=== PATIENT | male | born 1990 | race Two or more races ===

== ENCOUNTER 2020-09-13 01:40 | Emergency (ER) | payer MEDICAID, SELFPAY ==
[2020-09-13 01:44] VITALS: BP 155/90; PULSE 67; RESP 20; TEMP 36.8; O2SAT 98
--- NOTE | 2020-09-13 03:04 | ED_ITS ---
HPI - URI/Sore Throat General Chief Complaint: Upper Respiratory Symptoms Stated Complaint: SOB Time Seen by Provider: 09/13/20 03:04 History of Present Illness HPI Narrative: This is a 30-year-old male who presents with cough for 1 week denies fevers, chills, nausea, vomiting, recent travel, COVID-19 exposure. Patient states that he is also concerned about waking up in the middle of the night gasping for breath and when asked about feeling tired throughout the day he confirms that this is the case although states that his is not told him that he snores. Related Data Allergies Allergy/AdvReac Type Severity Reaction Status Date / Time shrimp [SHRIMP] Allergy Intermediate HIVES, Verified 09/13/20 03:11 SWELLING, HAYLEE Review of Systems Review of Systems: Pertinent positives and negatives as stated in the HPI and 10 point review of systems otherwise negative. [facility] Past Medical History Source: nursing notes reviewed Social History Social History Advance Directives: No Physical Exam Vital Signs: Vital Signs: Vital Signs Temp Pulse Resp BP Pulse Ox 09/13/20 03:10 98.4 F 78 16 146/91 H 99 09/13/20 01:44 98.2 F 67 20 155/90 H 98 Body Mass Index 3.0 VITAL SIGNS: Reviewed. GENERAL: Well developed, well nourished, in no acute distress. HEAD: Normocephalic/atraumatic, EYES: PERRLA, EOMI intact without pain, no nystagmus/pallor/icterus noted EARS: Ext canals without abnormality, TMs non-bulging and non-erythematous NOSE: Nares patent bilateral OROPHARYNX: no oral lesions noted, posterior pharynx clear and non-erythematous without noted tonsillar enlargement/erythema/exudates NECK: Supple, no adenopathy LUNGS: Normal breath sounds. No adventitious sounds or accessory muscle use. SpO2<98%> CARDIOVASCULAR: Regular rate and rhythm without noted murmurs, no JVD or lower extremity edema. ABDOMEN: Soft, non-tender, non-distended with bowel sounds. No rigidity. No guarding. No palpable masses or hernias noted MUSCULOSKELETAL: No tenderness, deformities, or effusions noted on gross inspection. EXTREMITIES: No cyanosis, clubbing or edema. SKIN: Inspection of the skin reveals no rashes, ulcerations, jaundice, pallor, or petechiae. NEUROLOGIC: Alert and oriented x 4. Strength and sensation to light touch were grossly intact x 4. Course Course Course Narrative: This is a 30-year-old male with history and clinical presentation suggestive of obstructive sleep apnea for which he was informed he would need to follow-up with his primary care provider for further evaluation through a sleep study. He is explicitly asking for COVID-19 testing which was performed and afterwards he was instructed to maintain strict self quarantine precautions until the results were called to him. He was discharged in stable condition. Discharge Plan Discharge Clinical Impression: Upper respiratory infection Patient Disposition: Home, Self-Care Instructions: Viral Syndrome (ED) Additional Instructions: You are required to self quarantine until the results of your COVID-19 test are called to you. The patient and/or family acknowledge understanding of results (as applicable), diagnosis, treatment plan, need for follow up, and symptoms that should prompt a return to the emergency room. Referrals: Physician,None [Primary Care Provider] - 2 days Interventions: ED Discharge Assessment Last Done: 09/13/20 04:09 Discharge Date/Time: 09/13/20 04:10
[2020-09-13 03:10] VITALS: BP 146/91; PULSE 78; RESP 16; TEMP 36.9; O2SAT 99
== END 2020-09-13 04:10 | disposition home or self-care (01) ==
PROVIDERS: Emergency Provider Student in an Organized Health Care Education/Training Program
DX: J06.9 Acute upper respiratory infection, unspecified (principal); Z20.828 Contact with and (suspected) exposure to other viral communicable diseases
CPT/HCPCS: 87635; 99283

== ENCOUNTER 2021-07-11 20:54 | Emergency (ER) | payer MEDICAID, SELFPAY ==
--- NOTE | ~2021-07-11 | XR_ITS ---
EXAMINATION: XR CHEST CLINICAL INFORMATION: Chest pain COMPARISON: 10/23/2018 TECHNIQUE: Frontal view of the chest was obtained. FINDINGS: No significant abnormality is noted involving the heart, lungs, mediastinum, bony thorax or soft tissues. XR/XR chest 1V IMPRESSION: Unremarkable examination.
[2021-07-11 21:04] VITALS: BP 122/76; PULSE 69; RESP 18; TEMP 36.7; O2SAT 98; BMI 35.7
--- NOTE | 2021-07-11 21:07 | ECG_ITS ---
Test Reason : SOB Blood Pressure : / mmHG Vent. Rate : 075 BPM Atrial Rate : 075 BPM P-R Int : 164 ms QRS Dur : 092 ms QT Int : 354 ms P-R-T Axes : 041 003 008 degrees QTc Int : 395 ms Normal sinus rhythm with sinus arrhythmia Minimal voltage criteria for LVH, may be normal variant Borderline ECG When compared with ECG of 23-OCT-2018 21:45, No significant change was found Referred By: Generic ED Physician Electronically Signed By:PHILL WELLS
--- NOTE | 2021-07-11 21:42 | ED.CHESTPAIN ---
HPI - Chest Pain General Chief Complaint: Chest Pain Stated Complaint: Chest tightness Time Seen by Provider: 07/11/21 21:42 Source: patient Mode of arrival: ambulatory Limitations: no limitations History of Present Illness MD complaint: chest heaviness and chest discomfort Pertinent past history: asthma Onset (ago): day(s) (7) Timing of current episode: episodic Prior episodes: No Onset: during rest and during exertion Pain location: right chest Pain radiation: none Severity: moderate Quality: tightness and sharp Relieving factors: nothing Exacerbating factors: nothing Associated symptoms: dyspnea Treatment prior to arrival: none Related Data Previous Rx's Medication Instructions Recorded albuterol sulfate 90 mcg/actuation 2 puff INHALATION QID PRN #6.7 g 07/11/21 aerosol inhaler prednisone 20 mg tablet 40 mg PO DAILY 5 Days #10 tab 07/11/21 Allergies Allergy/AdvReac Type Severity Reaction Status Date / Time shrimp [SHRIMP] Allergy Intermediate HIVES, Verified 07/11/21 21:04 SWELLING, HAYLEE Review of Systems Review of Systems: Constitutional : No Weight loss, No Fever, No Chills ENT/Mouth : No sore throat, No Rhinorrhea Eyes: No Eye Pain, No Swelling Cardiovascular : pos Chest Pain, pos SOB, no Dyspnea on Exertion, No Orthopnea, No Edema, No Palpitations Respiratory : No Cough, No Sputum Gastrointestinal : no Nausea, No Vomiting, No Diarrhea, No abdominal Pain, No Hematochezia, No Melena Genitourinary : No Dysuria, No Urinary Frequency Musculoskeletal : No joint pain, No Myalgias, No Joint Swelling Skin : No Skin Lesions, No rash Neuro : No Weakness, No Numbness, No Dizziness, No Headache Psych : No Anxiety/Panic, No Depression Heme/Lymph: No Bruising, No Lymphadenopathy Endocrine : No Polyuria, No Polydipsia All other systems reviewed and are negative PMFSH Past Medical History Medical History Asthma Social History Social History Alcohol intake: never Patient Tobacco Use Status: Never used Tobacco Use of substances other than those prescribed or required for medical reasons: No Advance Directives: No Advance Directives Information Provided: No Physical Exam Vital Signs: Vital Signs: Last Vital Signs Temp 98.6 F 07/11/21 21:49 Pulse 74 07/11/21 21:49 Resp 12 07/11/21 21:49 BP 114/79 07/11/21 21:49 Pulse Ox 97 07/11/21 21:49 Body Mass Index 35.7 Appearance: Alert. Oriented X3. No acute distress. Eyes: Pupils equal, round and reactive to light. ENT: Pharynx normal. Neck: Normal inspection. Neck supple. CVS: Normal heart rate and rhythm. Pulses normal. Respiratory: No respiratory distress. Breath sounds normal. Abdomen: Soft and nontender. Skin: Skin warm and dry. Normal skin color. Normal skin turgor. Extremities: No lower extremity edema. No calf ttp Neuro: Oriented X 3. No motor deficit. No sensory deficit. Course Course Course Narrative: negative workup stable for DC at this time will give INH to see if this improves his symptoms MDM - Chest Pain MDM Narrative Medical decision making narrative: 30 yo male with no sig PMH other than childhood asthma comes in with 7 days of R sided chest tightness and dyspnea - will obtain EKG, CXR, ddimer, troponin - no wheezing heard on exam at this time, dispo per results and findings. Differential Diagnosis Differential diagnosis: Likely atypical chest pain, costochondritis and chest pain; Unlikely pneumothorax or unstable angina pectoris Lab Data Result diagrams: 07/11/21 22:20 07/11/21 22:20 Labs: Lab Results 07/11/21 07/11/21 07/11/21 Range/Units 22:20 22:20 22:20 WBC 11.4 H (4.8-10.8) X10*3/uL RBC 5.30 (4.60-5.80) X10*6/uL Hgb 13.3 L (14.0-18.0) g/dl Hct 40.9 L (42-52) % MCV 77.2 L (80-98) fL MCH 25.1 L (27.0-33.0) pg MCHC 32.5 (31.0-36.0) g/dl RDW 14.7 (11.0-16.0) % Plt Count 379 (160-400) X10*3/uL MPV 9.1 L (9.4-12.4) fL Immature Gran % (Auto) 0.3 (0.0-0.4) % Neut % (Auto) 64.1 (45-73) % Lymph % (Auto) 27.3 (20-40) % [place] % (Auto) 5.7 (2-11) % Eos % (Auto) 2.2 (0-4) % Baso % (Auto) 0.4 (0-2) % Lymph # (Auto) 3.1 (1.2-4.9) X10*3/uL [place] # (Auto) 0.7 (0.1-1.2) X10*3/uL Eos # (Auto) 0.3 (0.0-0.4) X10*3/uL Baso # (Auto) 0.0 (0.0-0.2) X10*3/uL Abs Immat Gran (auto) 0.03 (0.00-0.03) X10*3/uL Absolute Neuts (auto) 7.3 (2.0-8.3) X10*3/uL Absolute Nucleated RBC 0.000 (0.0-0.012) X10*3/uL Nucleated RBC % (auto) 0.0 (0.0-0.2) /100WBC D-Dimer < 200 NG/ML Sodium 139 (135-145) mmol/L Potassium 4.4 (3.3-5.1) mmol/L Chloride 107 (96-108) mmol/L Carbon Dioxide 24 (22-29) mmol/L Anion Gap 12 (12-20) BUN 17 H (9-16) mg/dL Creatinine 1.02 (0.5-1.4) mg/dL Estim Creat Clear Calc 126.4 Estimated GFR > 60 Random Glucose 102 (60-115) mg/dL Calcium 9.5 (8.4-10.2) mg/dL Magnesium 2.2 (1.6-2.6) mg/dL Total Bilirubin 0.4 (0.0-1.0) mg/dL Direct Bilirubin < 0.2 (0.0-0.5) mg/dL AST 17 (5-37) U/L ALT 23 (0-40) U/L Alkaline Phosphatase 90 (39-117) U/L Troponin I High Sens (<3.5-35.0) ng/L B-Natriuretic Peptide (<100) pg/mL Total Protein 7.3 (6.5-8.0) g/dL Albumin 4.4 (3.5-5.0) g/dL Lipase 22 (8-78) U/L COVID-19 (NA) (Negative) COVID-19 Clin Com 07/11/21 07/11/21 Range/Units 22:20 22:20 WBC (4.8-10.8) X10*3/uL RBC (4.60-5.80) X10*6/uL Hgb (14.0-18.0) g/dl Hct (42-52) % MCV (80-98) fL MCH (27.0-33.0) pg MCHC (31.0-36.0) g/dl RDW (11.0-16.0) % Plt Count (160-400) X10*3/uL MPV (9.4-12.4) fL Immature Gran % (Auto) (0.0-0.4) % Neut % (Auto) (45-73) % Lymph % (Auto) (20-40) % [place] % (Auto) (2-11) % Eos % (Auto) (0-4) % Baso % (Auto) (0-2) % Lymph # (Auto) (1.2-4.9) X10*3/uL [place] # (Auto) (0.1-1.2) X10*3/uL Eos # (Auto) (0.0-0.4) X10*3/uL Baso # (Auto) (0.0-0.2) X10*3/uL Abs Immat Gran (auto) (0.00-0.03) X10*3/uL Absolute Neuts (auto) (2.0-8.3) X10*3/uL Absolute Nucleated RBC (0.0-0.012) X10*3/uL Nucleated RBC % (auto) (0.0-0.2) /100WBC D-Dimer NG/ML Sodium (135-145) mmol/L Potassium (3.3-5.1) mmol/L Chloride (96-108) mmol/L Carbon Dioxide (22-29) mmol/L Anion Gap (12-20) BUN (9-16) mg/dL Creatinine (0.5-1.4) mg/dL Estim Creat Clear Calc Estimated GFR Random Glucose (60-115) mg/dL Calcium (8.4-10.2) mg/dL Magnesium (1.6-2.6) mg/dL Total Bilirubin (0.0-1.0) mg/dL Direct Bilirubin (0.0-0.5) mg/dL AST (5-37) U/L ALT (0-40) U/L Alkaline Phosphatase (39-117) U/L Troponin I High Sens < 3.5 (<3.5-35.0) ng/L B-Natriuretic Peptide < 10 (<100) pg/mL Total Protein (6.5-8.0) g/dL Albumin (3.5-5.0) g/dL Lipase (8-78) U/L COVID-19 (NA) Negative (Negative) COVID-19 Clin Com See Note ECG Data ECG #1: Attestation: I personally reviewed and interpreted this ECG as follows: ECG interpretation date: 07/11/21 ECG interpretation time: 23:00 Interpretation: Rate: 75 Rhythm: NSR Zachary:normal LVH Normal P waves. Normal LILIYA. Normal QRS complex. ST T wave : normal no OBDULIA qTC: normal prior studies: no acute ischemia The study has been interpreted contemporaneously by me. . Discharge Plan Discharge Clinical Impression: Acute dyspnea Chest pain Qualifiers: Chest pain type: unspecified Qualified Code(s): R07.9 - Chest pain, unspecified Patient Disposition: Home, Self-Care Instructions: Chest Pain (ED), Shortness of Breath (ED) Additional Instructions: return to ED for any worsening symptoms or concerns TWO PUFFS EVERY 4 HOURS NEEDED FOR SHORTNESS OF BREATH Prescriptions: New prednisone 20 mg tablet 40 mg PO DAILY 5 Days Qty: 10 RF: 0 albuterol sulfate 90 mcg/actuation HFA aerosol inhaler 2 puff inhalation QID PRN (Reason: shortness of breath or wheezing) Qty: 6.7 RF: 0 Referrals: Physician,None [Primary Care Provider] - 2 days Stand Alone Forms: Work/School Release
[2021-07-11 21:49] VITALS: BP 114/79; PULSE 74; RESP 12; TEMP 37; O2SAT 97
[2021-07-11 22:26] LABS: MANUAL DIFF FLAG NO
[2021-07-11 22:28] LABS: Basophils Percent Auto 0.4 % (0-2); Eosinophils Absolute Auto 0.3 X10*3/uL (0.0-0.4); Eosinophils Percent Auto 2.2 % (0-4); Hematocrit 40.9 % (42-52); Hemoglobin 13.3 g/dl (14.0-18.0); Imm Gran Abs Auto 0.03 X10*3/uL (0.00-0.03); Imm Gran Pct Auto 0.3 % (0.0-0.4); Lymphocytes Absolute Auto 3.1 X10*3/uL (1.2-4.9); Lymphocytes Percent Auto 27.3 % (20-40); Mean Corpuscular HGB Conc 32.5 g/dl (31.0-36.0); Mean Corpuscular Hemoglobin 25.1 pg (27.0-33.0); Mean Corpuscular Volume 77.2 fL (80-98); Mean Platelet Volume 9.1 fL (9.4-12.4); Monocytes Absolute Auto 0.7 X10*3/uL (0.1-1.2); Monocytes Percent Auto 5.7 % (2-11); Neutrophils Absolute Auto 7.3 X10*3/uL (2.0-8.3); Neutrophils Percent Auto 64.1 % (45-73); Platelet Count 379 X10*3/uL (160-400); Red Cell Distribution Width 14.7 % (11.0-16.0); White Blood Count 11.4 X10*3/uL (4.8-10.8)
[2021-07-11 22:37] LABS: D Dimer < 200 NG/ML
[2021-07-11 22:43] LABS: COVID-19 Test Negative (Negative)
[2021-07-11 22:58] LABS: Alanine Aminotransferase 23 U/L (0-40); Albumin Level 4.4 g/dL (3.5-5.0); Alkaline Phosphatase 90 U/L (39-117); Anion Gap 12 (12-20); Aspartate Amino Transferase 17 U/L (5-37); Bilirubin Direct < 0.2 mg/dL (0.0-0.5); Bilirubin Total 0.4 mg/dL (0.0-1.0); Blood Urea Nitrogen 17 mg/dL (9-16); Calcium 9.5 mg/dL (8.4-10.2); Carbon Dioxide 24 mmol/L (22-29); Chloride 107 mmol/L (96-108); Creatinine Clr Calc Pharmacy 126.4; Estimated Glomerular Filt Rate > 60; Glucose Random 102 mg/dL (60-115); Lipase 22 U/L (8-78); Magnesium 2.2 mg/dL (1.6-2.6); Potassium 4.4 mmol/L (3.3-5.1); Sodium 139 mmol/L (135-145); Total Protein 7.3 g/dL (6.5-8.0)
[2021-07-11 23:00] LABS: B Type Natriuretic Peptide < 10 pg/mL (<100); Troponin-I High Sensitivity < 3.5 ng/L (<3.5-35.0)
--- NOTE | 2021-07-11 23:04 | PC.NURSE ---
Report received. PT is resting in bed in no apparent distress. Respirations even and unlabored. PT denies CP and SOB.
== END 2021-07-11 23:37 | disposition home or self-care (01) ==
PROVIDERS: Emergency Provider Emergency Medicine
DX: R07.9 Chest pain, unspecified (principal); R06.00 Dyspnea, unspecified; Z20.822 Contact with and (suspected) exposure to COVID-19; R06.02 Shortness of breath
CPT/HCPCS: 36415; 71045; 80048; 80076; 83690; 83735; 83880; 84484; 85025; 85379; 87635; 93005; 99284

== ENCOUNTER 2021-07-22 22:05 | Emergency (ER) | payer MEDICAID, SELFPAY ==
--- NOTE | ~2021-07-22 | XR_ITS ---
EXAMINATION: XR CHEST CLINICAL INFORMATION: Chest pain COMPARISON: 07/11/2021 TECHNIQUE: 2 views of the chest were obtained. FINDINGS: The lungs are well expanded. There is no focal consolidation, edema, or effusion. No pneumothorax. The cardiomediastinal silhouette is within normal limits. No acute osseous abnormality. XR/XR chest 2V IMPRESSION: Clear lungs.
--- NOTE | 2021-07-22 22:07 | ECG_ITS ---
Test Reason : DYSPNEA Blood Pressure : / mmHG Vent. Rate : 074 BPM Atrial Rate : 074 BPM P-R Int : 150 ms QRS Dur : 084 ms QT Int : 348 ms P-R-T Axes : 036 003 003 degrees QTc Int : 386 ms Normal sinus rhythm Moderate voltage criteria for LVH, may be normal variant Borderline ECG When compared with ECG of 11-JUL-2021 22:52, No significant change was found Referred By: Generic ED Physician Electronically Signed By:PHILL WELLS
[2021-07-22 22:26] VITALS: BP 134/82; PULSE 78; RESP 18; TEMP 36.8; O2SAT 96; BMI 39.0
--- NOTE | 2021-07-23 00:50 | PC.NURSE ---
PT TO ROOM #18 WITH C/O CHEST TIGHTNESS. PT RATING PAIN 5/10. PT ARRIVES ALERT, RESPIRATIONS EASY, N/L. SKIN W/D. PT CHG INTO GOWN, EKG DONE PREVIOUSLY, LABS DRAWN TO LAB. PT AWAITING FOR MD'S EVAL.
[2021-07-23 00:52] LABS: MANUAL DIFF FLAG NO
[2021-07-23 00:54] LABS: Basophils Percent Auto 0.3 % (0-2); Eosinophils Absolute Auto 0.4 X10*3/uL (0.0-0.4); Eosinophils Percent Auto 3.1 % (0-4); Hematocrit 40.1 % (42-52); Hemoglobin 13.1 g/dl (14.0-18.0); Imm Gran Abs Auto 0.06 X10*3/uL (0.00-0.03); Imm Gran Pct Auto 0.5 % (0.0-0.4); Lymphocytes Absolute Auto 4.3 X10*3/uL (1.2-4.9); Lymphocytes Percent Auto 33.2 % (20-40); Mean Corpuscular HGB Conc 32.7 g/dl (31.0-36.0); Mean Corpuscular Hemoglobin 25.3 pg (27.0-33.0); Mean Corpuscular Volume 77.6 fL (80-98); Mean Platelet Volume 8.8 fL (9.4-12.4); Monocytes Absolute Auto 0.7 X10*3/uL (0.1-1.2); Monocytes Percent Auto 5.4 % (2-11); Neutrophils Absolute Auto 7.5 X10*3/uL (2.0-8.3); Neutrophils Percent Auto 57.5 % (45-73); Platelet Count 357 X10*3/uL (160-400); Red Blood Count 5.17 X10*6/uL (4.60-5.80)
[2021-07-23 01:14] LABS: Anion Gap 11 (12-20); Blood Urea Nitrogen 17 mg/dL (9-16); Calcium 9.6 mg/dL (8.4-10.2); Carbon Dioxide 26 mmol/L (22-29); Chloride 106 mmol/L (96-108); Creatinine Clr Calc Pharmacy 130.7; Estimated Glomerular Filt Rate > 60; Glucose Random 97 mg/dL (60-115); Potassium 4.3 mmol/L (3.3-5.1); Sodium 139 mmol/L (135-145)
[2021-07-23 01:21] LABS: Troponin-I High Sensitivity < 3.5 ng/L (<3.5-35.0)
[2021-07-23] MEDS: predniSONE 20 MG TABLET 60 MG PO (01:41)
[2021-07-23 02:00] VITALS: BP 141/78; PULSE 72; RESP 18; TEMP 36.7; O2SAT 97
[2021-07-23] MEDS: Albuterol Sulfate (0.083%) 2.5 MG/3 ML VIAL.NEB 5 MG INHALE (02:12)
--- NOTE | 2021-07-23 02:21 | PC.NURSE ---
RESPIRATORY IN ROOM FOR EVAL.
--- NOTE | 2021-07-23 02:23 | ED.CHESTPAIN ---
HPI - Chest Pain General Chief Complaint: Chest Pain Stated Complaint: chest tightness, diff breathing Time Seen by Provider: 07/23/21 01:27 Source: patient Mode of arrival: ambulatory Limitations: no limitations History of Present Illness HPI narrative: Patient comes to emergency room complaining of wheezing and chest tightness. Patient states that he has been wheezing for last few days. Patient was seen here couple of weeks ago for the same reason. However, patient states that when he went to [facility], the pharmacy only gave him prednisone but they did not give him the albuterol inhaler. Patient denies fever or chills Related Data Previous Rx's Medication Instructions Recorded albuterol sulfate 90 mcg/actuation 2 puff INHALATION QID PRN #6.7 g 07/11/21 aerosol inhaler prednisone 20 mg tablet 40 mg PO DAILY 5 Days #10 tab 07/11/21 albuterol sulfate 90 mcg/actuation 2 puff INHALATION Q4-6H PRN #8.5 g 07/23/21 aerosol inhaler prednisone 50 mg tablet 50 mg PO DAILY #4 tab 07/23/21 Allergies Allergy/AdvReac Type Severity Reaction Status Date / Time shrimp [SHRIMP] Allergy Intermediate HIVES, Verified 07/22/21 22:26 SWELLING, HAYLEE Review of Systems Review of Systems: Constitutional : No Weight loss, No Fever, No Chills, No Night Sweats, No Fatigue, No Malaise ENT/Mouth : No Hearing loss, No Ear Pain, No Nasal Congestion, No Sinus Pain, No Hoarseness, No sore throat, No Rhinorrhea, No Swallowing Difficulty Eyes: No Eye Pain, No Swelling, No Redness, No Foreign Body, No Discharge, No Vision Changes Cardiovascular : No Chest Pain, no palpitations, no edema Respiratory : No Cough, complaining of occasional dyspnea with wheezing, chest tightness, pain Gastrointestinal : No Nausea, No Vomiting, No Diarrhea, No Constipation, No abdominal Pain, No Hematochezia, No Melena Genitourinary : no irregular bleeding, No Dysuria, No Urinary Frequency, No Hematuria, No Urinary Incontinence, No Urgency, No Flank Pain, No Urinary Flow Changes, No Hesitancy Musculoskeletal : No joint pain, No Myalgias, No Joint Swelling Skin : No Skin Lesions, No rash Neuro : No Weakness, No Numbness, No Paresthesias, No Loss of Consciousness, No Dizziness, No Headache Psych : No Anxiety/Panic, No Depression, No SI/HI/AH/VH, No Social Issues, Heme/Lymph: No Bruising, No Bleeding,No Lymphadenopathy Endocrine : No Polyuria, No Polydipsia, No Temperature Intolerance [facility] Past Medical History Medical History Asthma Social History Social History Alcohol intake: never Patient Tobacco Use Status: Never used Tobacco Advance Directives: No Advance Directives Information Provided: No Physical Exam Vital Signs: Vital Signs: Last Vital Signs Temp 98.0 F 07/23/21 02:00 Pulse 72 07/23/21 02:00 Resp 18 07/23/21 02:00 BP 141/78 H 07/23/21 02:00 Pulse Ox 97 07/23/21 02:00 Body Mass Index 39.0 Const: Other: Appearance: Alert. Oriented X3. No acute distress. Eyes: Pupils equal, round and reactive to light. ENT: Pharynx normal. Neck: Normal inspection. Neck supple. No lymph nodes noted. No crepitus CVS: Normal heart rate and rhythm. Pulses normal. Normal S1 and S2 Respiratory: No respiratory distress. Decreased breath sounds, mild bilateral wheezing No rales Abdomen: Soft and nontender. No rigidity. No distention. Skin: Skin warm and dry. Normal skin color. Normal skin turgor. Extremities: No lower extremity edema. No lower extremity edema. No Lacerations. No Rash Neuro: Oriented X 3. No motor deficit. No sensory deficit. Moving all extermities. No slurred speech. Course Course Course Narrative: Patient's shortness of breath is likely secondary to an asthma exacerbation, unfortunately patient has not had any albuterol for the last 2 weeks. Patient was given here a nebulization treatment. After the breathing treatment, patient feels much better, no longer having chest tightness. MDM - Chest Pain Lab Data Result diagrams: 07/23/21 00:43 07/23/21 00:43 Labs: Lab Results 07/23/21 07/23/21 07/23/21 Range/Units 00:43 00:43 00:43 WBC 13.0 H (4.8-10.8) X10*3/uL RBC 5.17 (4.60-5.80) X10*6/uL Hgb 13.1 L (14.0-18.0) g/dl Hct 40.1 L (42-52) % MCV 77.6 L (80-98) fL MCH 25.3 L (27.0-33.0) pg MCHC 32.7 (31.0-36.0) g/dl RDW 15.0 (11.0-16.0) % Plt Count 357 (160-400) X10*3/uL MPV 8.8 L (9.4-12.4) fL Immature Gran % (Auto) 0.5 H (0.0-0.4) % Neut % (Auto) 57.5 (45-73) % Lymph % (Auto) 33.2 (20-40) % [place] % (Auto) 5.4 (2-11) % Eos % (Auto) 3.1 (0-4) % Baso % (Auto) 0.3 (0-2) % Lymph # (Auto) 4.3 (1.2-4.9) X10*3/uL [place] # (Auto) 0.7 (0.1-1.2) X10*3/uL Eos # (Auto) 0.4 (0.0-0.4) X10*3/uL Baso # (Auto) 0.0 (0.0-0.2) X10*3/uL Abs Immat Gran (auto) 0.06 H (0.00-0.03) X10*3/uL Absolute Neuts (auto) 7.5 (2.0-8.3) X10*3/uL Absolute Nucleated RBC 0.000 (0.0-0.012) X10*3/uL Nucleated RBC % (auto) 0.0 (0.0-0.2) /100WBC Sodium 139 (135-145) mmol/L Potassium 4.3 (3.3-5.1) mmol/L Chloride 106 (96-108) mmol/L Carbon Dioxide 26 (22-29) mmol/L Anion Gap 11 L (12-20) BUN 17 H (9-16) mg/dL Creatinine 0.96 (0.5-1.4) mg/dL Estim Creat Clear Calc 130.7 Estimated GFR > 60 Random Glucose 97 (60-115) mg/dL Calcium 9.6 (8.4-10.2) mg/dL Troponin I High Sens < 3.5 (<3.5-35.0) ng/L COVID-19 (NA) (Negative) COVID-19 Clin Com 07/23/21 Range/Units 02:05 WBC (4.8-10.8) X10*3/uL RBC (4.60-5.80) X10*6/uL Hgb (14.0-18.0) g/dl Hct (42-52) % MCV (80-98) fL MCH (27.0-33.0) pg MCHC (31.0-36.0) g/dl RDW (11.0-16.0) % Plt Count (160-400) X10*3/uL MPV (9.4-12.4) fL Immature Gran % (Auto) (0.0-0.4) % Neut % (Auto) (45-73) % Lymph % (Auto) (20-40) % [place] % (Auto) (2-11) % Eos % (Auto) (0-4) % Baso % (Auto) (0-2) % Lymph # (Auto) (1.2-4.9) X10*3/uL [place] # (Auto) (0.1-1.2) X10*3/uL Eos # (Auto) (0.0-0.4) X10*3/uL Baso # (Auto) (0.0-0.2) X10*3/uL Abs Immat Gran (auto) (0.00-0.03) X10*3/uL Absolute Neuts (auto) (2.0-8.3) X10*3/uL Absolute Nucleated RBC (0.0-0.012) X10*3/uL Nucleated RBC % (auto) (0.0-0.2) /100WBC Sodium (135-145) mmol/L Potassium (3.3-5.1) mmol/L Chloride (96-108) mmol/L Carbon Dioxide (22-29) mmol/L Anion Gap (12-20) BUN (9-16) mg/dL Creatinine (0.5-1.4) mg/dL Estim Creat Clear Calc Estimated GFR Random Glucose (60-115) mg/dL Calcium (8.4-10.2) mg/dL Troponin I High Sens (<3.5-35.0) ng/L COVID-19 (NA) Negative (Negative) COVID-19 Clin Com See Note Discharge Plan Discharge Clinical Impression: Asthma exacerbation Patient Disposition: Home, Self-Care Instructions: Bronchospasm (ED) Additional Instructions: Please follow-up with your primary care physician tomorrow. If you have any worsening or new symptoms, please return to the emergency room or call 911 Prescriptions: New prednisone 50 mg tablet 50 mg PO DAILY Qty: 4 RF: 0 albuterol sulfate 90 mcg/actuation HFA aerosol inhaler 2 puff inhalation Q4-6H PRN (Reason: shortness of breath or wheezing) Qty: 8.5 RF: 0 No Action prednisone 20 mg tablet 40 mg PO DAILY 5 Days Qty: 10 RF: 0 albuterol sulfate 90 mcg/actuation HFA aerosol inhaler 2 puff inhalation QID PRN (Reason: shortness of breath or wheezing) Qty: 6.7 RF: 0
[2021-07-23 02:37] LABS: COVID-19 Test Negative (Negative)
[2021-07-23] MEDS: Magnesium Hydrox/Alum Hydrox 30 ML ORAL.SUSP PO (02:56)
== END 2021-07-23 03:09 | disposition home or self-care (01) ==
PROVIDERS: Emergency Provider Emergency Medicine
DX: J45.901 Unspecified asthma with (acute) exacerbation (principal); Z20.822 Contact with and (suspected) exposure to COVID-19
CPT/HCPCS: 36415; 71046; 80048; 84484; 85025; 87635; 93005; 99283; 99284

== ENCOUNTER 2022-02-01 19:05 | Emergency (ER) | payer MEDICAID, SELFPAY ==
[2022-02-01 19:11] VITALS: BP 139/80; PULSE 81; RESP 18; TEMP 36.9; O2SAT 97; BMI 42.5
[2022-02-01 19:25] LABS: Glucose, Whole Blood 109 mg/dL (60-115)
[2022-02-01 20:10] VITALS: BP 144/85; PULSE 76; RESP 16; TEMP 36.6; O2SAT 97
--- NOTE | 2022-02-01 20:11 | ED_ITS ---
HPI - General Adult General Chief complaint: General Medical Stated complaint: Lightheaded, High blood sugar Source: patient Mode of arrival: ambulatory Limitations: no limitations History of Present Illness HPI narrative: 31-year-old male presents from Urgent Care for lightheadedness, elevated glucose at 318, hypertension, and inability to concentrate. Patient does not report any weakness, changes in vision, loss of balance, chest pain or pressure, palpitations, shortness of breath, abdominal pain, abdominal distention, dysuria, hematuria, or any other concerning symptoms. Onset (ago): week(s) Radiation: non-radiation Severity: moderate Severity scale (1-10): 5 Relieving factors: none Exacerbating factors: other (Exertion) Treatments prior to arrival: none Related Data Previous Rx's Medication Instructions Recorded albuterol sulfate 90 mcg/actuation 2 puff INHALATION QID PRN #6.7 g 07/11/21 aerosol inhaler prednisone 20 mg tablet 40 mg PO DAILY 5 Days #10 tab 07/11/21 albuterol sulfate 90 mcg/actuation 2 puff INHALATION Q4-6H PRN #8.5 g 07/23/21 aerosol inhaler prednisone 50 mg tablet 50 mg PO DAILY #4 tab 07/23/21 Allergies Allergy/AdvReac Type Severity Reaction Status Date / Time shrimp [SHRIMP] Allergy Intermediate HIVES, Verified 07/22/21 22:26 SWELLING, HAYLEE Review of Systems Review of Systems: Constitutional: Positive lightheadedness, No Fever, No Chills ENT/Mouth: No Ear Pain, No Hoarseness, No sore throat Eyes: No Eye Pain, No Swelling, No Redness, No Foreign Body Cardiovascular: No Chest Pain, No SOB Respiratory: No Cough, No Dyspnea Gastrointestinal: No Nausea, No Vomiting, No Diarrhea, No abdominal Pain Genitourinary: No Dysuria, No Hematuria Musculoskeletal: No joint pain, No Myalgias, No Joint Swelling Skin: No Skin lacerations, No rash Neuro: No Weakness, No Numbness, No Paresthesias, No Loss of Consciousness, No Dizziness, No Headache Psych: Positive change in concentration, No Anxiety/Panic, No Depression Heme/Lymph: no easy bruising, no Lymphadenopathy Endocrine: No Polyuria, No Polydipsia Yes all other systems are reviewed and are negative PMFSH Past Medical History Attestation statement: The following information was validated with the patient. Source: old records reviewed Medical History Asthma Sleep apnea Social History Social History Alcohol intake: never Patient Tobacco Use Status: Never used Tobacco Use of substances other than those prescribed or required for medical reasons: No Advance Directives: No Advance Directives Information Provided: No Physical Exam ED Vital Signs: Vital Signs - 24 hr 02/01/22 19:11 02/01/22 20:10 02/01/22 22:12 Temperature 98.4 F 98 F 98.1 F Pulse Rate 81 76 80 Respiratory Rate 18 16 16 Blood Pressure 139/80 144/85 H 140/77 H Pulse Oximetry 97 97 97 BMI result Body Mass Index 42.5 Appearance: Alert. Oriented X3. No acute distress. Eyes: Pupils equal, round and reactive to light. EOMI. Sclera nonicteric. ENT: Pharynx normal. Moist mucous membranes. Neck: Normal inspection. Neck supple. No JVD. CVS: Normal heart rate and rhythm. Pulses normal. Respiratory: No respiratory distress. Breath sounds normal. Abdomen: Soft and nontender. Obese. Skin: Skin warm and dry. Normal skin color. Normal skin turgor. Extremities: No lower extremity edema. Gait well-balanced well coordinated. Neuro: No motor deficit. No sensory deficit. Cranial nerves 2-12 intact. Course Course Course Narrative: 31-year-old male presents with lightheadedness, elevated blood glucose, inability to concentrate, and fatigue. States that he has had these symptoms for few weeks, does not have primary care physician. He was evaluated at urgent care, urgent care referred him to the emergency department for further evaluation. Detailed discussion with patient regarding blood pressure, while blood pressure is 130/80, I do not feel that we need to initiate blood pressure medications at this time. Will order labs, chemistry, COVID testing and urinalysis. 21:00 lab values shown elevated white count of 11.8 which is consistent with his prior values dating back to June of 2021, chemistries are negative, urinalysis is negative. A1c is pending. 22:16 discussion with chemistry, A1c will not be run tonight as this is the daytime lab only. Patient will be discharged home with recommendation to follow-up with primary care physician for suspected diabetes and hypertension. Patient verbalized understanding of and agrees to plan of care to discharge home. Verbalized understanding of signs and symptoms indicating need for emergent intervention Medical Decision Making Differential Diagnosis Differential Diagnosis: Hypertension, diabetes, viral syndrome Medical Records Medical records reviewed: Yes I reviewed the patient's medical records. Lab Data Lab results reviewed: Yes I reviewed the patient's lab results. Result diagrams: 02/01/22 20:19 02/01/22 20:31 Labs: Lab Results 02/01/22 02/01/22 02/01/22 Range/Units 19:20 20:19 20:21 WBC 11.8 H (4.8-10.8) X10*3/uL RBC 5.57 (4.60-5.80) X10*6/uL Hgb 13.5 L (14.0-18.0) g/dl Hct 43.1 (42.0-52.0) % MCV 77.4 L (80.0-98.0) fL MCH 24.2 L (27.0-33.0) pg MCHC 31.3 (31.0-36.0) g/dl RDW 15.8 (11.0-16.0) % Plt Count 379 (160-400) X10*3/uL MPV 9.1 L (9.4-12.4) fL Immature Gran % (Auto) 0.3 (0.0-0.4) % Neut % (Auto) 62.1 (45-73) % Lymph % (Auto) 28.1 (20-40) % [place] % (Auto) 5.7 (2-11) % Eos % (Auto) 3.4 (0-4) % Baso % (Auto) 0.4 (0-2) % Lymph # (Auto) 3.3 (1.2-4.9) X10*3/uL [place] # (Auto) 0.7 (0.1-1.2) X10*3/uL Eos # (Auto) 0.4 (0.0-0.4) X10*3/uL Baso # (Auto) 0.1 (0.0-0.2) X10*3/uL Abs Immat Gran (auto) 0.03 (0.00-0.03) X10*3/uL Absolute Neuts (auto) 7.3 (2.0-8.3) x10*3/uL Absolute Nucleated RBC 0.000 (0.0-0.012) X10*3/uL Nucleated RBC % (auto) 0.0 (0.0-0.2) /100WBC Sodium (135-145) mmol/L Potassium (3.3-5.1) mmol/L Chloride (96-108) mmol/L Carbon Dioxide (22-29) mmol/L Anion Gap (12-20) BUN (9-16) mg/dL Creatinine (0.5-1.4) mg/dL Estim Creat Clear Calc Estimated GFR POC Glucose 109 (60-115) mg/dL Random Glucose (60-115) mg/dL Calcium (8.4-10.2) mg/dL Urine Color Urine Appearance Urine pH (5.0-8.0) Ur Specific [place] (1.005-1.025) Urine Protein (NEG-TRACE) MG/DL Urine Glucose (UA) (NEG) MG/DL Urine Ketones (NEG) MG/DL Urine Blood (NEG) Urine Nitrite (NEG) Ur Leukocyte Esterase (NEG) COVID-19 (NA) Negative (Negative) COVID-19 Clin Com See Note 02/01/22 02/01/22 Range/Units 20:31 22:24 WBC (4.8-10.8) X10*3/uL RBC (4.60-5.80) X10*6/uL Hgb (14.0-18.0) g/dl Hct (42.0-52.0) % MCV (80.0-98.0) fL MCH (27.0-33.0) pg MCHC (31.0-36.0) g/dl RDW (11.0-16.0) % Plt Count (160-400) X10*3/uL MPV (9.4-12.4) fL Immature Gran % (Auto) (0.0-0.4) % Neut % (Auto) (45-73) % Lymph % (Auto) (20-40) % [place] % (Auto) (2-11) % Eos % (Auto) (0-4) % Baso % (Auto) (0-2) % Lymph # (Auto) (1.2-4.9) X10*3/uL [place] # (Auto) (0.1-1.2) X10*3/uL Eos # (Auto) (0.0-0.4) X10*3/uL Baso # (Auto) (0.0-0.2) X10*3/uL Abs Immat Gran (auto) (0.00-0.03) X10*3/uL Absolute Neuts (auto) (2.0-8.3) x10*3/uL Absolute Nucleated RBC (0.0-0.012) X10*3/uL Nucleated RBC % (auto) (0.0-0.2) /100WBC Sodium 139 (135-145) mmol/L Potassium 4.2 (3.3-5.1) mmol/L Chloride 107 (96-108) mmol/L Carbon Dioxide 26 (22-29) mmol/L Anion Gap 10 L (12-20) BUN 13 (9-16) mg/dL Creatinine 0.82 (0.5-1.4) mg/dL Estim Creat Clear Calc 144.7 Estimated GFR > 60 POC Glucose (60-115) mg/dL Random Glucose 86 (60-115) mg/dL Calcium 9.2 (8.4-10.2) mg/dL Urine Color YELLOW Urine Appearance CLEAR Urine pH 6.0 (5.0-8.0) Ur Specific [place] 1.020 (1.005-1.025) Urine Protein NEG (NEG-TRACE) MG/DL Urine Glucose (UA) NEG (NEG) MG/DL Urine Ketones NEG (NEG) MG/DL Urine Blood NEG (NEG) Urine Nitrite NEG (NEG) Ur Leukocyte Esterase NEG (NEG) COVID-19 (NA) (Negative) COVID-19 Clin Com Discharge Plan Discharge Clinical Impression: Hypertension, Acute hyperglycemia Patient Disposition: Home, Self-Care Instructions: Heart Healthy Diet (ED), Low-Sodium Diet (ED), Hypertension (ED), Nondiabetic Hyperglycemia (ED) Additional Instructions: You were evaluated for elevated blood pressure and high blood sugar. Your A1c is pending. You must follow-up with primary care physician for high blood pressure and possible diabetes. At this time, I cannot start you on any medications for diabetes because we were waiting for your A1c level. If you decide to follow up with urgent care, the urgent care center in [facility] urgent care center will be able to look at your lab levels. Changing your diet and adding exercise can help reduce blood pressure and blood sugar Thank you for choosing this emergency department for evaluation. Please follow-up with primary care physician as needed. Return to the emergency department for any new, concerning, or worsening symptoms. Prescriptions: No Action prednisone 20 mg tablet 40 mg PO DAILY 5 Days Qty: 10 0RF albuterol sulfate 90 mcg/actuation HFA aerosol inhaler 2 puff inhalation QID PRN (Reason: shortness of breath or wheezing) Qty: 6.7 0RF prednisone 50 mg tablet 50 mg PO DAILY Qty: 4 0RF albuterol sulfate 90 mcg/actuation HFA aerosol inhaler 2 puff inhalation Q4-6H PRN (Reason: shortness of breath or wheezing) Qty: 8.5 0RF Stand Alone Forms: Work/School Release Interventions: ED Discharge Assessment Last Done: 02/01/22 22:57 Discharge Date/Time: 02/01/22 22:59
[2022-02-01 20:23] LABS: MANUAL DIFF FLAG NO
[2022-02-01 20:25] LABS: Basophils Absolute Auto 0.1 X10*3/uL (0.0-0.2); Basophils Percent Auto 0.4 % (0-2); Eosinophils Absolute Auto 0.4 X10*3/uL (0.0-0.4); Eosinophils Percent Auto 3.4 % (0-4); Hematocrit 43.1 % (42.0-52.0); Hemoglobin 13.5 g/dl (14.0-18.0); Imm Gran Abs Auto 0.03 X10*3/uL (0.00-0.03); Imm Gran Pct Auto 0.3 % (0.0-0.4); Lymphocytes Absolute Auto 3.3 X10*3/uL (1.2-4.9); Lymphocytes Percent Auto 28.1 % (20-40); Mean Corpuscular HGB Conc 31.3 g/dl (31.0-36.0); Mean Corpuscular Hemoglobin 24.2 pg (27.0-33.0); Mean Corpuscular Volume 77.4 fL (80.0-98.0); Mean Platelet Volume 9.1 fL (9.4-12.4); Monocytes Absolute Auto 0.7 X10*3/uL (0.1-1.2); Monocytes Percent Auto 5.7 % (2-11); Neutrophils Absolute Auto 7.3 x10*3/uL (2.0-8.3); Neutrophils Percent Auto 62.1 % (45-73); Platelet Count 379 X10*3/uL (160-400); Red Blood Count 5.57 X10*6/uL (4.60-5.80); Red Cell Distribution Width 15.8 % (11.0-16.0); White Blood Count 11.8 X10*3/uL (4.8-10.8)
[2022-02-01 20:41] LABS: COVID-19 Test Negative (Negative)
[2022-02-01 20:55] LABS: Anion Gap 10 (12-20); Blood Urea Nitrogen 13 mg/dL (9-16); Calcium 9.2 mg/dL (8.4-10.2); Carbon Dioxide 26 mmol/L (22-29); Chloride 107 mmol/L (96-108); Creatinine Clr Calc Pharmacy 144.7; Estimated Glomerular Filt Rate > 60; Glucose Random 86 mg/dL (60-115); Potassium 4.2 mmol/L (3.3-5.1); Sodium 139 mmol/L (135-145)
[2022-02-01 22:12] VITALS: BP 140/77; PULSE 80; RESP 16; TEMP 36.7; O2SAT 97
[2022-02-01 22:30] LABS: Appearance Urine CLEAR; Color Urine YELLOW; Glucose Urine UA NEG (NEG); Leukocyte Esterase Urine NEG (NEG); Nitrite Urine NEG (NEG); Urine Blood NEG (NEG); Urine Ketones NEG (NEG); Urine Protein NEG (NEG-TRACE)
[2022-02-02 07:47] LABS: Estimated Average Glucose 111 mg/dL; Hemoglobin A1c % 5.5 %
== END 2022-02-01 22:59 | disposition home or self-care (01) ==
PROVIDERS: Nurse Practitioner Family; Emergency Provider Student in an Organized Health Care Education/Training Program
DX: R73.9 Hyperglycemia, unspecified (principal); I10 Essential (primary) hypertension; Z20.822 Contact with and (suspected) exposure to COVID-19; Z79.899 Other long term (current) drug therapy
CPT/HCPCS: 36415; 80048; 81003; 82947; 83036; 85025; 87635; 99283; 99285

== ENCOUNTER 2022-02-10 11:45 | Emergency (ER) | payer MEDICAID, SELFPAY ==
--- NOTE | ~2022-02-10 | XR_ITS ---
EXAMINATION: XR CHEST CLINICAL INFORMATION: Dyspnea COMPARISON: Chest 07/22/2021 TECHNIQUE: Frontal view of the chest was obtained. FINDINGS: No significant abnormality is noted involving the heart, lungs, mediastinum, bony thorax or soft tissues. XR/XR chest 1V IMPRESSION: Unremarkable chest examination.
[2022-02-10 11:54] VITALS: BP 159/81; PULSE 81; RESP 18; TEMP 36.8; O2SAT 97; BMI 44.2
--- NOTE | 2022-02-10 13:01 | ED_ITS ---
HPI - SOB/Dyspnea General Chief Complaint: General Medical Stated Complaint: SOB Time Seen by Provider: 02/10/22 13:00 Source: patient Mode of arrival: ambulatory Limitations: no limitations History of Present Illness HPI Narrative: 31 yo male with hx of asthma recent negative hemoglobin A1C 5.5 c/o feeling short of breath for the last 3 nights waking up choking and having a metallic taste in his mouth. Denies hx of GERD. Trying to get a PCP. Feels some chest discomfort MD elicited complaint: shortness of breath Pertinent past history: asthma Onset (ago): day(s) (3) Timing: intermittent Severity: mild Exacerbating factors: lying flat and other (sleeping) Relieving factors: nothing Known history of: asthma Associated symptoms: other (metallic taste in mouth, feels chest discomfort at times) Treatment prior to arrival: bronchodilator Related Data Previous Rx's Medication Instructions Recorded albuterol sulfate 90 mcg/actuation 2 puff INHALATION QID PRN #6.7 g 07/11/21 aerosol inhaler prednisone 20 mg tablet 40 mg PO DAILY 5 Days #10 tab 07/11/21 albuterol sulfate 90 mcg/actuation 2 puff INHALATION Q4-6H PRN #8.5 g 07/23/21 aerosol inhaler prednisone 50 mg tablet 50 mg PO DAILY #4 tab 07/23/21 famotidine 20 mg tablet (Pepcid) 40 mg PO DAILY #30 tab 02/10/22 Allergies Allergy/AdvReac Type Severity Reaction Status Date / Time shrimp [SHRIMP] Allergy Intermediate HIVES, Verified 07/22/21 22:26 SWELLING, HAYLEE Review of Systems Review of Systems: Constitutional : No Weight loss, No Fever, No Chills ENT/Mouth : No sore throat, No Rhinorrhea, pos metallic taste in mouth Eyes: No Eye Pain, No Swelling Cardiovascular : pos Chest Pain, pos SOB, no Dyspnea on Exertion, No Orthopnea, No Edema, No Palpitations Respiratory : No Cough, No Sputum Gastrointestinal : no Nausea, No Vomiting, No Diarrhea, No abdominal Pain, No Hematochezia, No Melena Genitourinary : No Dysuria, No Urinary Frequency Musculoskeletal : No joint pain, No Myalgias, No Joint Swelling Skin : No Skin Lesions, No rash Neuro : No Weakness, No Numbness, No Dizziness, No Headache Psych : No Anxiety/Panic, No Depression Heme/Lymph: No Bruising, No Lymphadenopathy Endocrine : No Polyuria, No Polydipsia All other systems reviewed and are negative [facility] Past Medical History Attestation statement: The following information was validated with the patient. Medical History Asthma Sleep apnea Social History Social History Alcohol intake: current Alcohol intake frequency: a few times a month Patient Tobacco Use Status: Never used Tobacco Advance Directives: Yes Advance Directives Information Provided: Yes Advance Directives on File: No Physical Exam Vital Signs: Vital Signs: Last Vital Signs Temp 98.3 F 02/10/22 13:08 Pulse 69 02/10/22 13:08 Resp 17 02/10/22 13:08 BP 114/86 02/10/22 13:08 Pulse Ox 97 02/10/22 13:08 BMI result Body Mass Index 44.2 Appearance: Alert. Oriented X3. No acute distress. Eyes: Pupils equal, round and reactive to light. ENT: Pharynx normal. Neck: Normal inspection. Neck supple. CVS: Normal heart rate and rhythm. Pulses normal. Respiratory: No respiratory distress. Breath sounds normal. Abdomen: Soft and non-tender. Skin: Skin warm and dry. Normal skin color. Normal skin turgor. Extremities: No lower extremity edema. No calf ttp Neuro: Oriented X 3. No motor deficit. No sensory deficit. Course Course Course Narrative: no acute findings stable for DC MDM - SOB/Dyspnea MDM Narrative Medical decision making narrative: 31 yo male with hx of asthma recent negative hemoglobin A1C 5.5 c/o feeling short of breath for the last 3 nights waking up choking and having a metallic taste in his mouth. At this time did discuss could be DAVID which would require sleep study and he needs a PCP for this. Also given the metallic taste could be GERD waking him up it would be beneficial to start a PPI to see if this improves his symptoms. He is PERC negative. His symptoms are atypical for ACS will obtain EKG and troponin x 1 Lab Data Result diagrams: 02/10/22 13:27 02/10/22 13:27 Labs: Lab Results 02/10/22 02/10/22 02/10/22 Range/Units 13:27 13:27 13:27 WBC 10.0 (4.8-10.8) X10*3/uL RBC 5.25 (4.60-5.80) X10*6/uL Hgb 12.7 L (14.0-18.0) g/dl Hct 40.1 L (42.0-52.0) % MCV 76.4 L (80.0-98.0) fL MCH 24.2 L (27.0-33.0) pg MCHC 31.7 (31.0-36.0) g/dl RDW 15.6 (11.0-16.0) % Plt Count 386 (160-400) X10*3/uL MPV 9.2 L (9.4-12.4) fL Immature Gran % (Auto) 0.3 (0.0-0.4) % Neut % (Auto) 74.5 H (45-73) % Lymph % (Auto) 18.7 L (20-40) % [place] % (Auto) 5.3 (2-11) % Eos % (Auto) 0.9 (0-4) % Baso % (Auto) 0.3 (0-2) % Lymph # (Auto) 1.9 (1.2-4.9) X10*3/uL [place] # (Auto) 0.5 (0.1-1.2) X10*3/uL Eos # (Auto) 0.1 (0.0-0.4) X10*3/uL Baso # (Auto) 0.0 (0.0-0.2) X10*3/uL Abs Immat Gran (auto) 0.03 (0.00-0.03) X10*3/uL Absolute Neuts (auto) 7.4 (2.0-8.3) x10*3/uL Absolute Nucleated RBC 0.000 (0.0-0.012) X10*3/uL Nucleated RBC % (auto) 0.0 (0.0-0.2) /100WBC Sodium 138 (135-145) mmol/L Potassium 4.2 (3.3-5.1) mmol/L Chloride 106 (96-108) mmol/L Carbon Dioxide 23 (22-29) mmol/L Anion Gap 13 (12-20) BUN 15 (9-16) mg/dL Creatinine 0.92 (0.5-1.4) mg/dL Estim Creat Clear Calc 132.0 Estimated GFR > 60 Random Glucose 92 (60-115) mg/dL Calcium 9.9 D (8.4-10.2) mg/dL Total Bilirubin 0.7 (0.0-1.0) mg/dL Direct Bilirubin 0.2 (0.0-0.5) mg/dL AST 18 (5-37) U/L ALT 28 (0-40) U/L Alkaline Phosphatase 97 (39-117) U/L Troponin I High Sens < 3.5 (<3.5-35.0) ng/L Total Protein 7.5 (6.5-8.0) g/dL Albumin 4.6 (3.5-5.0) g/dL Lipase 15 (8-78) U/L ECG Data Attestation: I personally reviewed and interpreted this ECG as follows: ECG interpretation date: 02/10/22 ECG interpretation time: 13:26 Interpretation: Rate: 72 Rhythm: NSR [place]: normal, LVH Normal P waves. Normal LILIYA. Normal QRS complex. ST T wave : normal no OBDULIA qTC: normal prior studies: no acute ischemia The study has been interpreted contemporaneously by me. . Discharge Plan Discharge Clinical Impression: Acute dyspnea GERD (gastroesophageal reflux disease) Qualifiers: Esophagitis presence: without esophagitis Qualified Code(s): K21.9 - Gastro-esophageal reflux disease without esophagitis Patient Disposition: Home, Self-Care Instructions: Gastroesophageal Reflux Disease (ED), Dyspnea (ED) Additional Instructions: return to ED for any worsening symptoms or concerns take the pepcid daily for 2 weeks to see if this improves your symptoms avoid eating and laying flat - do not eat 1 hour prior to bed follow up with a primary care doctor Prescriptions: New famotidine [Pepcid] 20 mg tablet 40 mg PO DAILY Qty: 30 0RF No Action prednisone 20 mg tablet 40 mg PO DAILY 5 Days Qty: 10 0RF albuterol sulfate 90 mcg/actuation HFA aerosol inhaler 2 puff inhalation QID PRN (Reason: shortness of breath or wheezing) Qty: 6.7 0RF prednisone 50 mg tablet 50 mg PO DAILY Qty: 4 0RF albuterol sulfate 90 mcg/actuation HFA aerosol inhaler 2 puff inhalation Q4-6H PRN (Reason: shortness of breath or wheezing) Qty: 8.5 0RF Stand Alone Forms: Work/School Release
--- NOTE | 2022-02-10 13:05 | ECG_ITS ---
Test Reason : dypena Blood Pressure : / mmHG Vent. Rate : 072 BPM Atrial Rate : 072 BPM P-R Int : 172 ms QRS Dur : 078 ms QT Int : 370 ms P-R-T Axes : 041 009 012 degrees QTc Int : 405 ms Normal sinus rhythm Minimal voltage criteria for LVH, may be normal variant ( R in aVL ) Borderline ECG When compared with ECG of 22-JUL-2021 22:12, No significant change was found Referred By: Rosie Bacon Electronically Signed By:BETTY BOYD
[2022-02-10 13:08] VITALS: BP 114/86; PULSE 69; RESP 17; TEMP 36.8; O2SAT 97
[2022-02-10 13:31] LABS: MANUAL DIFF FLAG NO
[2022-02-10 13:36] LABS: Basophils Percent Auto 0.3 % (0-2); Eosinophils Absolute Auto 0.1 X10*3/uL (0.0-0.4); Eosinophils Percent Auto 0.9 % (0-4); Hematocrit 40.1 % (42.0-52.0); Hemoglobin 12.7 g/dl (14.0-18.0); Imm Gran Abs Auto 0.03 X10*3/uL (0.00-0.03); Imm Gran Pct Auto 0.3 % (0.0-0.4); Lymphocytes Absolute Auto 1.9 X10*3/uL (1.2-4.9); Lymphocytes Percent Auto 18.7 % (20-40); Mean Corpuscular HGB Conc 31.7 g/dl (31.0-36.0); Mean Corpuscular Hemoglobin 24.2 pg (27.0-33.0); Mean Corpuscular Volume 76.4 fL (80.0-98.0); Mean Platelet Volume 9.2 fL (9.4-12.4); Monocytes Absolute Auto 0.5 X10*3/uL (0.1-1.2); Monocytes Percent Auto 5.3 % (2-11); Neutrophils Absolute Auto 7.4 x10*3/uL (2.0-8.3); Neutrophils Percent Auto 74.5 % (45-73); Platelet Count 386 X10*3/uL (160-400); Red Blood Count 5.25 X10*6/uL (4.60-5.80); Red Cell Distribution Width 15.6 % (11.0-16.0)
[2022-02-10 13:49] LABS: Alanine Aminotransferase 28 U/L (0-40); Albumin Level 4.6 g/dL (3.5-5.0); Alkaline Phosphatase 97 U/L (39-117); Anion Gap 13 (12-20); Aspartate Amino Transferase 18 U/L (5-37); Bilirubin Direct 0.2 mg/dL (0.0-0.5); Bilirubin Total 0.7 mg/dL (0.0-1.0); Blood Urea Nitrogen 15 mg/dL (9-16); Calcium 9.9 mg/dL (8.4-10.2); Carbon Dioxide 23 mmol/L (22-29); Chloride 106 mmol/L (96-108); Estimated Glomerular Filt Rate > 60; Glucose Random 92 mg/dL (60-115); Lipase 15 U/L (8-78); Potassium 4.2 mmol/L (3.3-5.1); Sodium 138 mmol/L (135-145); Total Protein 7.5 g/dL (6.5-8.0)
[2022-02-10 13:53] LABS: Troponin-I High Sensitivity < 3.5 ng/L (<3.5-35.0)
== END 2022-02-10 14:15 | disposition home or self-care (01) ==
PROVIDERS: Emergency Provider Emergency Medicine
DX: R06.00 Dyspnea, unspecified (principal); K21.9 Gastro-esophageal reflux disease without esophagitis
CPT/HCPCS: 36415; 71045; 80048; 80076; 83690; 84484; 85025; 93005; 99283; 99284

== ENCOUNTER 2022-03-19 18:07 | Emergency (ER) | payer OTHER, SELFPAY ==
[2022-03-19 18:28] VITALS: BP 144/81; PULSE 77; RESP 18; TEMP 37.1; O2SAT 97; BMI 42.5
--- NOTE | 2022-03-19 18:33 | PC.NURSE ---
BG POC in triage 89
[2022-03-19 20:32] LABS: Glucose, Whole Blood 89 mg/dL (60-115)
--- NOTE | 2022-03-19 22:25 | ED_ITS ---
HPI - Headache General Chief Complaint: Headache Stated Complaint: pressure on head/dizziness/blood sugar up an down Time Seen by Provider: 03/19/22 22:25 Source: patient Mode of arrival: ambulatory Limitations: no limitations History of Present Illness HPI Narrative: Patient was strong family history of diabetes his brother and mother has diabetic patient HbA1c was 5 in 5 last month checking his blood sugar fluc tuating between 70 to 300 complaining of nonspecific headache and dizziness for last week his blood sugar today was 89 on on after arrival was 77 claims that when he turns his head to 1 side or other side everything is spinning , multiple complaints no fever or chills Related Data Previous Rx's Medication Instructions Recorded albuterol sulfate 90 mcg/actuation 2 puff INHALATION QID PRN #6.7 g 07/11/21 aerosol inhaler prednisone 20 mg tablet 40 mg PO DAILY 5 Days #10 tab 07/11/21 albuterol sulfate 90 mcg/actuation 2 puff INHALATION Q4-6H PRN #8.5 g 07/23/21 aerosol inhaler prednisone 50 mg tablet 50 mg PO DAILY #4 tab 07/23/21 famotidine 20 mg tablet (Pepcid) 40 mg PO DAILY #30 tab 02/10/22 meclizine 25 mg tablet 25 mg PO TID PRN #14 tab 03/19/22 Allergies Allergy/AdvReac Type Severity Reaction Status Date / Time shrimp [SHRIMP] Allergy Intermediate HIVES, Verified 03/19/22 18:28 SWELLING, HAYLEE Review of Systems Review of Systems: Yes all other systems are reviewed and are negative [facility] Past Medical History Medical History Asthma Sleep apnea Social History Social History Alcohol intake: current Alcohol intake frequency: a few times a month Patient Tobacco Use Status: Never used Tobacco Advance Directives: No Advance Directives Information Provided: No Physical Exam Vital Signs: Vital Signs: Last Vital Signs Temp 97.5 F 03/19/22 23:26 Pulse 65 03/19/22 23:26 Resp 20 03/19/22 23:26 BP 110/67 03/19/22 23:26 Pulse Ox 97 03/19/22 23:26 BMI result Body Mass Index 42.5 Appearance: Alert. Oriented X3. No acute distress. Eyes: PERRLA, No Nystagmus ENT: Pharynx normal. Oral Mucosa moist Neck: Normal inspection. Neck supple. CVS: Normal heart rate and rhythm. Pulses normal. Respiratory: No respiratory distress. Equal air entry bilateral, Abdomen: Soft and nontender. Bowel sounds are present, Skin: Skin warm and dry. Normal skin color. Normal skin turgor. Extremities: No lower extremity edema. No calf tenderness Neuro: Oriented X 3. No motor deficit. No sensory deficit.No cerebellar signs , cranial nerves II-XII intact MDM - Headache Differential Diagnosis Differential diagnosis: Likely migraine Medical Records Attestation: I reviewed the patient's medical records. Lab Data Attestation: I reviewed the patient's lab results. Labs: Lab Results 03/19/22 03/19/22 03/19/22 Range/Units 18:34 22:29 22:40 POC Glucose 89 77 (60-115) mg/dL Urine Color YELLOW Urine Appearance CLEAR Urine pH 6.0 (5.0-8.0) Ur Specific [place] >= 1.030 H (1.005-1.025) Urine Protein NEG (NEG-TRACE) MG/DL Urine Glucose (UA) NEG (NEG) MG/DL Urine Ketones NEG (NEG) MG/DL Urine Blood NEG (NEG) Urine Nitrite NEG (NEG) Ur Leukocyte Esterase NEG (NEG) Discharge Plan Discharge Clinical Impression: Benign paroxysmal positional vertigo Patient Disposition: Home, Self-Care Instructions: Benign Paroxysmal Positional Vertigo (ED) Additional Instructions: Rest at home Your not diabetic Meclizine for dizziness as prescribed Prescriptions: New meclizine 25 mg tablet 25 mg PO TID PRN (Reason: dizziness) Qty: 14 0RF No Action prednisone 20 mg tablet 40 mg PO DAILY 5 Days Qty: 10 0RF albuterol sulfate 90 mcg/actuation HFA aerosol inhaler 2 puff inhalation QID PRN (Reason: shortness of breath or wheezing) Qty: 6.7 0RF prednisone 50 mg tablet 50 mg PO DAILY Qty: 4 0RF albuterol sulfate 90 mcg/actuation HFA aerosol inhaler 2 puff inhalation Q4-6H PRN (Reason: shortness of breath or wheezing) Qty: 8.5 0RF famotidine [Pepcid] 20 mg tablet 40 mg PO DAILY Qty: 30 0RF Interventions: ED Discharge Assessment Last Done: 03/19/22 23:29
[2022-03-19 22:26] VITALS: BP 122/68; PULSE 77; RESP 20; O2SAT 98
[2022-03-19 22:33] LABS: Glucose, Whole Blood 77 mg/dL (60-115)
[2022-03-19] MEDS: Meclizine HCl 25 MG TABLET 50 MG PO (22:44)
[2022-03-19 22:48] LABS: Appearance Urine CLEAR; Color Urine YELLOW; Glucose Urine UA NEG (NEG); Leukocyte Esterase Urine NEG (NEG); Nitrite Urine NEG (NEG); Specific Gravity - Urine >= 1.030 (1.005-1.025); Urine Blood NEG (NEG); Urine Ketones NEG (NEG); Urine Protein NEG (NEG-TRACE)
[2022-03-19 23:26] VITALS: BP 110/67; PULSE 65; RESP 20; TEMP 36.4; O2SAT 97
== END 2022-03-19 23:33 | disposition home or self-care (01) ==
PROVIDERS: Emergency Provider Internal Medicine; PCP Internal Medicine
DX: H81.13 Benign paroxysmal vertigo, bilateral (principal); R51.9 Headache, unspecified; Z79.899 Other long term (current) drug therapy
CPT/HCPCS: 81003; 82947; 99283; 99285

== ENCOUNTER 2022-10-16 07:01 | Emergency (ER) | payer OTHER, SELFPAY ==
--- NOTE | ~2022-10-16 | XR_ITS ---
EXAMINATION: XR HAND, RIGHT CLINICAL INFORMATION: Swelling fifth digit COMPARISON: None TECHNIQUE: PA, lateral, and oblique views of the right hand. FINDINGS: There is a boxer's fracture distal fifth metacarpal with volar angulation. No dislocation or additional fracture seen. There is mild soft tissue swelling along the dorsal hand and fifth MCP joint.. XR/XR hand RT 2V IMPRESSION: Boxer's fracture distal fifth metacarpal with volar angulation and mild soft tissue swelling dorsal hand.
[2022-10-16 07:05] VITALS: PULSE 76; RESP 18; TEMP 36.6; O2SAT 98; BMI 37.5
--- NOTE | 2022-10-16 07:45 | ED.EXTPRO ---
HPI - Extremity Problem General Chief complaint: Extremity Injury, Upper Stated complaint: r hand inj at home Time Seen by Provider: 10/16/22 07:34 Source: patient and family Mode of arrival: ambulatory Limitations: no limitations History of Present Illness HPI Narrative: 32-year-old male came in for evaluation of right hand injury. Patient is a right-hand dominant, had an argument with his family patient became angery and punched a wall with his right hand, complaining of pain and swelling of the right hand. Patient declined SI, HI, hallucinations. Related Data Previous Rx's Medication Instructions Recorded prednisone 50 mg tablet 50 mg PO DAILY #4 tabs 07/23/21 famotidine 20 mg tablet (Pepcid) 40 mg PO DAILY #30 tabs 02/10/22 meclizine 25 mg tablet 25 mg PO TID PRN dizziness #14 tabs 03/19/22 albuterol sulfate 90 mcg/actuation 2 puff inhalation Q4-6H PRN 04/25/22 aerosol inhaler shortness of breath or wheezing #8.5 grams Allergies Allergy/AdvReac Type Severity Reaction Status Date / Time shrimp [SHRIMP] Allergy Intermediate HIVES, Verified 04/25/22 11:53 SWELLING, HAYLEE Review of Systems Review of Systems: All other systems are reviewed and are negative Constitutional: Reports as per HPI and Reports no additional constitutional complaints Eyes: Reports as per HPI and Reports no additional eye complaints Reports system reviewed and no additional complaints, except as documented Cardiovascular: Reports as per HPI and Reports no additional cardiovascular complaints Respiratory: Reports as per HPI and Reports no additional respiratory complaints Gastrointestinal: Reports as per HPI and Reports no additional gastrointestinal complaints Genitourinary: Reports no additional female genitourinary complaints Musculoskeletal: Reports no additional musculoskeletal complaints Skin/Breast: Reports system reviewed and no additional complaints, except as docu Psychiatric: Reports no additional psychiatric complaints Endocrine: Reports no additional endocrine complaints Hematologic/Lymphatic: Reports no additional hematologic/lymphatic complaints Allergic/Immunologic: Reports no additional allergic/immunologic complaints Reports system reviewed and no additional complaints, except as documented and Reports Abnormal speech present [facility] Past Medical History Medical History Asthma Sleep apnea Family History Family History Mother Mental health disorder Social History Social History Housing: Apartment Alcohol intake: current Alcohol intake frequency: holidays/special occasions only Patient Tobacco Use Status: Never used Tobacco Smoked in Last 30 Days: No e-Cigarette/Vaping Use: Never Used Use of substances other than those prescribed or required for medical reasons: No Advance Directives: No Advance Directives Information Provided: No service: No Current occupational status: employed Cognitive needs: No Hearing needs: No Vision needs: No Physical Exam Vital Signs: Vital Signs: Last Vital Signs Temp 97.5 F 10/16/22 09:21 Pulse 65 10/16/22 09:21 Resp 16 10/16/22 09:21 BP 130/62 10/16/22 09:21 Pulse Ox 97 10/16/22 09:21 O2 Del Method 10/16/22 09:21 BMI result Body Mass Index 37.5 Vital signs have been reviewed as appeared to be correct. Blood pressure normal. Heart rate normal. Respiration rate normal. Temperature normal. Oxygen saturation normal. Appearance: Alert. Oriented X3. No acute distress. Head: Normal external exam. Normocephalic. Atraumatic. No Ty signs noted. No raccoon eyes noted Eyes: PERRLA. EOMI. Conjunctiva and sclera normal. Eyelids normal. ENT: TM's Normal. Pharynx normal. Uvula midline. Moist mucous membranes. No trismus noted. No drooling noted. No muffled voice noted. Neck: Normal inspection. Neck supple. FROM. No adenopathy. Thyroid Normal. No meningeal signs. No neck mass noted. CVS: Normal heart rate and rhythm. Heart sound normal. No murmurs noted. Pulses normal throughout. Respiratory: No respiratory distress. Painless inspiration. Breath sounds normal. No wheezes/rales/rhonchi noted. Chest nontender. No accessory muscle usage noted or decreased air movement noted. Abdomen: Soft and nontender. Bowel sounds normal in all 4 quadrants. No distention noted. No organomegaly noted. No visible injury noted. Back: No CVA tenderness. Full range of motion noted. Skin: Skin warm and dry. Normal skin color. Normal skin turgor. No rashes/lesions/lacerations noted. Extremities: Right hand: Swelling and tenderness over the right 5th metatarsal bone able to do a complete flexion, extension, abduction, and abduction of all fingers, able to fully close right hand. Neuro: Oriented X 3. Cranial nerve exam: II-XII are grossly intact No motor deficit. No sensory deficit. Reflexes normal. Course Course Course Narrative: Right hand boxer fracture. Attempt to reduce with applying traction and counter traction and splint, and follow up with hand surgeon. MDM - Extremity (Nontraumatic) Imaging Data Right hand x-ray: Attestation: I personally reviewed and interpreted this imaging study as follows: Radiologist's impression: Boxer's fracture distal fifth metacarpal with volar angulation and mild soft tissue swelling dorsal hand. Discharge Plan Discharge Clinical Impression: Closed boxer's fracture Patient Disposition: Home, Self-Care Instructions: Boxer Fracture (ED) Prescriptions: No Action prednisone 50 mg tablet 50 mg PO DAILY Qty: 4 0RF famotidine [Pepcid] 20 mg tablet 40 mg PO DAILY Qty: 30 0RF meclizine 25 mg tablet 25 mg PO TID PRN (Reason: dizziness) Qty: 14 0RF albuterol sulfate 90 mcg/actuation HFA aerosol inhaler 2 puff inhalation Q4-6H PRN (Reason: shortness of breath or wheezing) Qty: 8.5 0RF Referrals: Syeda Paulson MD [Physician] - Stand Alone Forms: Work/School Release
[2022-10-16 07:50] VITALS: BP 131/71; PULSE 79; RESP 16; TEMP 36.4; O2SAT 96
[2022-10-16 09:21] VITALS: BP 130/62; PULSE 65; RESP 16; TEMP 36.4; O2SAT 97
--- NOTE | 2022-10-16 09:27 | PC.NURSE ---
per ed md order applied ulnar gutter splint to rt hand of patient. patient tolerated well and has full cap refill in rt fingertips.
== END 2022-10-16 10:00 | disposition home or self-care (01) ==
PROVIDERS: Emergency Provider Emergency Medicine; PCP Internal Medicine
DX: S62.306A Unspecified fracture of fifth metacarpal bone, right hand, initial encounter for closed fracture (principal); W22.09XA Striking against other stationary object, initial encounter; Y93.89 Activity, other specified; Y92.9 Unspecified place or not applicable; Y99.9 Unspecified external cause status
CPT/HCPCS: 29125; 73120; 99284

== ENCOUNTER → 2022-10-18 09:57 | Outpatient (BNVA) | payer OTHER, SELFPAY | PROVIDERS: PCP Internal Medicine; Visit Provider Nurse Practitioner Family | DX: G47.19 Other hypersomnia (principal); R06.83 Snoring; E66.01 Morbid (severe) obesity due to excess calories; Z68.37 Body mass index [BMI] 37.0-37.9, adult | CPT/HCPCS: 99202 ==

== ENCOUNTER 2022-10-25 16:23 | Outpatient (REF) | payer OTHER, SELFPAY ==
--- NOTE | ~2022-10-25 | XR_ITS ---
EXAMINATION: XR HAND, RIGHT CLINICAL INFORMATION: Pain COMPARISON: None TECHNIQUE: PA, lateral, and oblique views of the right hand. FINDINGS: There is nondisplaced but volarly angulated fracture distal fifth metacarpal with mild soft tissue swelling. No additional fractures are seen. This XR/XR hand RT min 3V IMPRESSION: Boxer's fracture distal fifth metacarpal with mild soft tissue swelling.
== END 2022-10-25 16:24 | disposition home or self-care (01) ==
LOC: HO.HOSX 16:23
PROVIDERS: Visit Provider Orthopaedic Surgery
DX: M79.641 Pain in right hand (principal)
CPT/HCPCS: 73130

== ENCOUNTER → 2022-10-26 10:41 | Outpatient (BNVA) | payer OTHER, SELFPAY | PROVIDERS: PCP Internal Medicine; Visit Provider Orthopaedic Surgery | DX: S62.336A Displaced fracture of neck of fifth metacarpal bone, right hand, initial encounter for closed fracture (principal) | CPT/HCPCS: 99202 ==

== ENCOUNTER → 2022-10-31 10:44 | Outpatient (REF) | payer OTHER, SELFPAY | LOC: HO.SL 10:44 | PROVIDERS: PCP Internal Medicine; Visit Provider Nurse Practitioner Family | DX: G47.19 Other hypersomnia (principal); R06.83 Snoring; E66.01 Morbid (severe) obesity due to excess calories | CPT/HCPCS: 95806 ==

== ENCOUNTER 2022-11-09 14:58 | Outpatient (REF) | payer OTHER, SELFPAY | END 2022-11-09 14:59 | disposition home or self-care (01) | LOC: HO.HOSX 14:58 | PROVIDERS: Visit Provider Orthopaedic Surgery | DX: Z13.89 Encounter for screening for other disorder (principal) ==

== ENCOUNTER 2024-05-16 09:48 | Outpatient (AMB) | payer OTHER, SELFPAY ==
--- NOTE | 2024-05-16 11:06 | A.OFFPC_ITS ---
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 Has sleep apnea worsening the past two weeks. Lungs feel heavy, trouble breathing, chest pain Component Inspector Required: No Allergies shrimp [SHRIMP] Allergy (Intermediate, Verified 05/16/24 11:09) HIVES, SWELLING, HAYLEE Medication List - Last Reconciled 05/16/24 by Angeline Nicole MD albuterol sulfate 90 mcg/actuation 2 puffs inhalation Q4-6H PRN famotidine (Pepcid) 40 mg (2 x 20 mg) PO DAILY Tobacco use date assessed: 04/25/22 Dental Screening Dental Screen Date: 05/16/24 Did you have a dental visit in the last 12 months?: No Did you have a dental problem in the last 6 months where you did not have access to dental care?: Yes Was dental information given to patient?: Yes HPI HPI Comments History of Present Illness Details This is a 33 year old male with a past medical history of DAVID, asthma presenting to [facility] Patient woke up last week in the middle of the night. He felt like he was paralyzed. He has been having shortness of breath, air hunger. Upper and low back pain. This has increased anxiety levels. He has been using his albuterol without much help. He has had milder episodes of this in the past. ROS see HPI PHYSICAL EXAM: GENERAL: Alert and oriented x 3. NAD EYES: EOMI. Anicteric. HENT: Moist mucous membranes. No scleral icterus. No cervical lymphadenopathy. LUNGS: Clear to auscultation bilaterally. CARDIOVASCULAR: Regular rate and rhythm. No murmur. No JVD. ABDOMEN: Soft, non-tender +bs EXTREMITIES: No edema. Non-tender. SKIN: No rashes or lesions. Warm. NEUROLOGIC: No focal neurological deficits. CN II-XII grossly intact PSYCHIATRIC: Cooperative. Appropriate mood and affect. 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 1. Little interest or pleasure in doing things: several days 2. Feeling down, depressed, or hopeless: more than half the days 3. Trouble falling or staying asleep, or sleeping too much: nearly every day 4. Feeling tired or having little energy: nearly every day 5. Poor appetite or overeating: several days 6. Feeling bad about yourself - or that you are a failure or have let yourself or your family down: more than half the days 7. Trouble concentrating on things, such as reading the newspaper or watching television: nearly every day 8. Moving or speaking so slowly that other people could have noticed. Or the opposite - being so fidgety or restless that you have been moving around a lot more than usual: nearly every day 9. Thoughts that you would be better off or of hurting yourself in some way: not at all Total score: 18 Depression Screening Interpretation: Positive Depression Screening Done: Yes 28288 - PHQ-9 Billing: Yes Source: Developed by Drs. Rishabh Eller, Triny Rodriguez, Johny Santos and colleagues, with an educational joanne from [employer]. Thrive Questionnaire Date Thrive assessed: 05/16/24 I am a: Patient What is your living situation today?: I have a steady place to live Within the past 12 months, did the food you bought not last and you didn't have the money to get more?: Never true Within the past 12 months, did you worry whether your food would run out before you got money to buy more?: Never true Do you have trouble getting transportation to medical appointments?: No Do you have trouble paying your heating and electricity bill?: No Do you have trouble taking care of your child, family member or friend?: No Do you have trouble with day-to-day activities such as bathing, preparing meals, shopping, managing finances, etc.?: No Are you currently unemployed and looking for a job?: No Are you interested in more education?: No Please select the resources that you would like help with: None Currently or been in a relationship where the following occur: no concerns reported THRIVE Score: 0 AUDIT C Alcohol Use Questionnaire (AUDIT-C) 1. How often do you have a drink containing alcohol?: Never (Stopped drinking a month and a half ago) 3. How often do you have six or more drinks on one occasion?: Never Total Score: 0 GIGI-7 AMB Questionnaire GIGI-7 Date GIGI - 7 assessed: 05/16/24 Feeling nervous, anxious, or on edge: 3 = Nearly every day Not being able to stop or control worryin = Nearly every day Worrying too much about different things: 3 = Nearly every day Trouble relaxin = Nearly every day Being so restless that it is hard to sit still: 3 = Nearly every day Becoming easily annoyed or irritable: 1 = Several days Feeling afraid as if something awful might happen: 2 = More than half the days Total GIGI-7 score (0-4 normal; 5-9 mild; 10-14 moderate; 15-21 severe): 18 Source: Developed by Drs. Rishabh Eller, Triny Rodriguez, Johny Santos and colleagues, with an educational joanne from [employer]. GIGI-7 Assessment Billing GIGI-7 Assessment Tool: GIGI-7 Assessment 21982 Physical exam (Primary Care) Vital Signs: Last Vital Signs Temp 98.2 F 05/16/24 11:12 Pulse 81 05/16/24 11:12 Resp 16 05/16/24 11:12 BP 120/76 05/16/24 11:12 Pulse Ox 96 05/16/24 11:12 Oxygen Delivery Method Room Air 05/16/24 11:12 BMI result Body Mass Index 39.6 Tobacco/Smoking Status: Tobacco use Status Tobacco use date assessed 04/25/22 05/16/24 11:07 Patient Tobacco Use Status Never used Tobacco 05/16/24 11:10 e-Cigarette/Vaping Use Never Used 05/16/24 11:10 PHQ-9: PHQ-9 Score PHQ-9: Total score 18 05/16/24 16:33 Depression Screening Interpretation: Positive Thrive Assessment: Date of Thrive Assessment Date Thrive assessed 05/16/24 05/16/24 16:33 Currently or been in a relationship where the following occur: no concerns reported Assessment and Plan Assessment & Plan (1) Sleep apnea: Code(s): G47.30 - Sleep apnea, unspecified Qualifiers: Sleep apnea type: obstructive Qualified Code(s): G47.33 - Obstructive sleep apnea (adult) (pediatric) Plan: referral sleep medicine (2) Anemia: Code(s): D64.9 - Anemia, unspecified Qualifiers: Anemia type: unspecified type Qualified Code(s): D64.9 - Anemia, unspecified (3) Snoring: Code(s): R06.83 - Snoring (4) Shortness of breath: Onset Date: ~05/16/24 Code(s): R06.02 - Shortness of breath Plan: EKG performed. labs ordered. CXR ordered. F/up 1-2 weeks (5) Shortness of breath: Onset Date: ~05/16/24 Code(s): R06.02 - Shortness of breath Orders: Orders Complete Blood Count Auto Diff 05/16/24 D64.9 - Anemia, unspecified, R06.02 - Shortness of breath, R53.83 - Other fatigue Lipid Panel 05/16/24 D64.9 - Anemia, unspecified, R06.02 - Shortness of breath, R53.83 - Other fatigue D Dimer High Sensitivity 05/16/24 D64.9 - Anemia, unspecified, R06.02 - Shortness of breath, R53.83 - Other fatigue TSH reflex Free T4 05/16/24 D64.9 - Anemia, unspecified, R06.02 - Shortness of breath, R06.83 - Snoring, R07.9 - Chest pain, unspecified AMB EKG-In Office 05/16/24 G47.30 - Sleep apnea, unspecified, R06.02 - Shortness of breath, R06.83 - Snoring, R53.83 - Other fatigue Hemoglobin Electrophoresis 05/16/24 D64.9 - Anemia, unspecified, R06.02 - Shortness of breath, R53.83 - Other fatigue Comprehensive Met. Panel 05/16/24 D64.9 - Anemia, unspecified, R06.02 - Shortness of breath, R53.83 - Other fatigue Erythrocyte Sedimentation Rate 05/16/24 D64.9 - Anemia, unspecified, R06.02 - Shortness of breath, R53.83 - Other fatigue IRON PROFILE 05/16/24 D64.9 - Anemia, unspecified, R06.02 - Shortness of breath, R53.83 - Other fatigue XR chest 2V 05/16/24 R06.02 - Shortness of breath Referrals Sleep Medicine Referral G47.30 - Sleep apnea, unspecified Medications: New lorazepam 0.5 mg PO BID PRN 28 tabs 0RF anxiety 14 days albuterol sulfate 90 mcg/actuation 2 puffs inhalation Q4-6H PRN 8.5 grams 3RF shortness of breath or wheezing 30 days Coding Level of Care Code New Pt Level 4 (90428) Complex EM visit Add On G2211 Diagnoses Obstructive sleep apnea syndrome G47.33 Sleep apnea type: obstructive Anemia, unspecified type D64.9 Anemia type: unspecified type Snoring R06.83 Shortness of breath R06.02 Additional Codes GIGI-7 Assessment Billing - GIGI-7 Assessment Tool: GIGI-7 Assessment 01111 ([id number])
[2024-05-16 11:12] VITALS: BP 120/76; PULSE 81; RESP 16; TEMP 36.8; O2SAT 96; BMI 39.6
== END 2024-05-16 12:22 | disposition home or self-care (01) ==
PROVIDERS: PCP Internal Medicine; Visit Provider Internal Medicine
DX: G47.33 Obstructive sleep apnea (adult) (pediatric) (principal); D64.9 Anemia, unspecified; R06.83 Snoring; R06.02 Shortness of breath
CPT/HCPCS: 93000; 99214; G2211

== ENCOUNTER 2024-05-16 12:23 | Outpatient (REF) | payer OTHER, SELFPAY ==
[2024-05-16 14:21] LABS: MANUAL DIFF FLAG NO
[2024-05-16 14:45] LABS: Basophils Percent Auto 0.5 % (0-2); Eosinophils Absolute Auto 0.3 X10*3/uL (0.0-0.4); Eosinophils Percent Auto 2.9 % (0-4); Hematocrit 43.5 % (42.0-52.0); Hemoglobin 14.3 g/dl (14.0-18.0); Imm Gran Abs Auto 0.02 X10*3/uL (0.00-0.03); Imm Gran Pct Auto 0.2 % (0.0-0.4); Lymphocytes Absolute Auto 2.1 X10*3/uL (1.2-4.9); Lymphocytes Percent Auto 23.9 % (20-40); Mean Corpuscular HGB Conc 32.9 g/dl (31.0-36.0); Mean Corpuscular Hemoglobin 25.4 pg (27.0-33.0); Mean Corpuscular Volume 77.1 fL (80.0-98.0); Mean Platelet Volume 9.5 fL (9.4-12.4); Monocytes Absolute Auto 0.5 X10*3/uL (0.1-1.2); Monocytes Percent Auto 5.4 % (2-11); Neutrophils Absolute Auto 5.9 x10*3/uL (2.0-8.3); Neutrophils Percent Auto 67.1 % (45-73); Platelet Count 399 X10*3/uL (160-400); Red Blood Count 5.64 X10*6/uL (4.60-5.80); Red Cell Distribution Width 15.2 % (11.0-16.0); White Blood Count 8.7 X10*3/uL (4.8-10.8)
[2024-05-16 14:50] LABS: D Dimer High Sensitivity < 150 NG/ML
[2024-05-16 14:52] LABS: Alanine Aminotransferase 21 U/L (0-40); Albumin Level 4.8 g/dL (3.5-5.0); Alkaline Phosphatase 85 U/L (39-117); Anion Gap 12 (12-20); Aspartate Amino Transferase 20 U/L (5-37); Bilirubin Total 0.3 mg/dL (0.0-1.0); Blood Urea Nitrogen 13 mg/dL (9-16); Calcium 9.9 mg/dL (8.4-10.2); Carbon Dioxide 22 mmol/L (22-29); Chloride 110 mmol/L (96-108); Cholesterol 181 mg/dL (<200); Estimated Glomerular Filt Rate > 60; Glucose Random 96 mg/dL (60-115); HDL Cholesterol 39 mg/dL (>40); Iron 43 mcg/dL (45-160); LDL Cholesterol Calculated 123 mg/dL (<100); Percent Iron Saturation 14 % (15-50); Potassium 4.1 mmol/L (3.3-5.1); Sodium 140 mmol/L (135-145); Total Iron Binding Capacity 312 mcg/dL (228-428); Total Protein 7.9 g/dL (6.5-8.0); Triglycerides 96 mg/dL (<150); Unsaturated Iron Binding 269 ug/dL
[2024-05-16 14:58] LABS: TSH reflex Free T4 0.71 uIU/mL (0.32-4.0)
[2024-05-16 15:22] LABS: Erythrocyte Sedimentation Rate 9 MM/HR (0-15)
[2024-05-19 14:24] LABS: Hematocrit 43.4 % (38.5-50.0); Hemoglobin 14.3 g/dL (13.2-17.1); MCH 25.7 pg (27.0-33.0); MCV 78.1 fL (80.0-100.0); RBC 5.56 Million/uL (4.20-5.80); RDW 14.6 % (11.0-15.0)
== END 2024-05-16 12:24 | disposition home or self-care (01) ==
LOC: HO.WFDLDS 12:23
PROVIDERS: Visit Provider Internal Medicine
DX: R06.02 Shortness of breath (principal); R07.9 Chest pain, unspecified; R53.83 Other fatigue; D64.9 Anemia, unspecified; R06.83 Snoring
CPT/HCPCS: 36415; 80053; 80061; 83020; 83540; 84443; 85014; 85018; 85025; 85041; 85379; 85652

== ENCOUNTER 2024-05-21 09:12 | Outpatient (REF) | payer OTHER, SELFPAY ==
--- NOTE | ~2024-05-21 | XR_ITS ---
EXAMINATION: XR CHEST CLINICAL INFORMATION: Shortness of breath, chest pain and tightness for 2 weeks. COMPARISON: February 10, 2022 TECHNIQUE: 2 views of the chest were obtained. FINDINGS: There is no gross pneumothorax. Stable cardiomediastinal silhouette. Heart size within normal limits. No pleural effusion. No focal consolidation to suggest pneumonia minimal degenerative changes in the thoracic spine. XR/XR chest 2V IMPRESSION: No evidence of pneumonia.
== END 2024-05-21 09:13 | disposition home or self-care (01) ==
LOC: HO.XRAY 09:12
PROVIDERS: PCP Internal Medicine; Visit Provider Internal Medicine
DX: R06.02 Shortness of breath (principal)
CPT/HCPCS: 71046

== ENCOUNTER 2024-05-30 11:03 | Outpatient (AMB) | payer OTHER, SELFPAY ==
--- NOTE | 2024-05-30 11:16 | A.OFFPC_ITS ---
Vital Signs 05/30/24 11:27 Height 5 ft 4 in Weight 231 lb BMI 39.6 BP 120/60 Blood Pressure Location Lt brachial Position Sitting Respiration 13 Pulse 80 Pulse Source Pulse Oximeter Pulse Oximetry (%) 99 Oxygen Delivery Method Room Air Intake Visit Reasons: F/U Sleep apnea and X-ray Intake Note: Patient would like to review labs and imaging reports today. 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 He felt like he was paralyzed. He has been having shortness of breath, air hunger. Upper and low back pain. This has increased anxiety levels. He has been using his albuterol without much help. He has had milder episodes of this in the past. Labs fairly unremarkable. He has CXR which was has not been read. Perhaps some findings consistent with perhaps bronchitis Reports his breathing has improved a little since his visit. He explains he has had intermittent episodes like this. Would like to see psychiatry in addition to neurology/sleep medicine. ROS see HPI PHYSICAL EXAM: GENERAL: Alert and oriented x 3. NAD EYES: EOMI. Anicteric. HENT: Moist mucous membranes. No scleral icterus. No cervical lymphadenopathy. LUNGS: Clear to auscultation bilaterally. CARDIOVASCULAR: Regular rate and rhythm. No murmur. No JVD. ABDOMEN: Soft, non-tender +bs EXTREMITIES: No edema. Non-tender. SKIN: No rashes or lesions. Warm. NEUROLOGIC: No focal neurological deficits. CN II-XII grossly intact PSYCHIATRIC: Cooperative. Appropriate mood and affect. 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 Rishabh Eller, Triny Rodriguez, Johny Santos and colleagues, with an educational joanne from [employer]. Physical exam (Primary Care) Vital Signs: Last Vital Signs Pulse 80 05/30/24 11:27 Resp 13 05/30/24 11:27 BP 120/60 05/30/24 11:27 Pulse Ox 99 05/30/24 11:27 Oxygen Delivery Method Room Air 05/30/24 11:27 BMI result Body Mass Index 39.6 Tobacco/Smoking Status: Tobacco use Status Tobacco use date assessed 05/30/24 05/30/24 11:31 Patient Tobacco Use Status Never used Tobacco 05/30/24 11:33 e-Cigarette/Vaping Use Currently Using 05/30/24 11:33 Thrive Assessment: Date of Thrive Assessment Date Thrive assessed 05/16/24 05/30/24 11:17 Assessment and Plan Assessment & Plan (1) Fatigue: Code(s): R53.83 - Other fatigue Qualifiers: Fatigue type: unspecified Qualified Code(s): R53.83 - Other fatigue (2) Shortness of breath: Onset Date: ~05/16/24 Code(s): R06.02 - Shortness of breath Plan: Some interval improvement (3) Sleep apnea: Code(s): G47.30 - Sleep apnea, unspecified Qualifiers: Sleep apnea type: obstructive Qualified Code(s): G47.33 - Obstructive sleep apnea (adult) (pediatric) Plan: pending sleep medicine referral. compliant with cpap (4) Anxiety: Code(s): F41.9 - Anxiety disorder, unspecified Plan: start ssri, hydroxyzine. SE reviewed. Will follow up in 4-6 weeks. referred to psych Orders: Referrals Psychology Referral F41.0 - Panic disorder [episodic paroxysmal anxiety], F41.9 - Anxiety disorder, unspecified, G47.9 - Sleep disorder, unspecified, R06.02 - Shortness of breath Medications: New sertraline Take 1/2 tab oral daily for one week then increase to 1 tab oral daily 25 mg PO DAILY 90 tabs 1RF 90 days azithromycin For 250 mg dose pack: take 500 mg today (day 1), then 250 mg for 4 days (days 2-5) PO 6 tabs 0RF hydroxyzine HCl 25 mg PO BEDTIME 90 tabs 1RF Coding Level of Care Code Tele Est Pt Level 4 (62053) Diagnoses Fatigue, unspecified type R53.83 Fatigue type: unspecified Shortness of breath R06.02 Obstructive sleep apnea syndrome G47.33 Sleep apnea type: obstructive Anxiety F41.9
[2024-05-30 11:27] VITALS: BP 120/60; PULSE 80; RESP 13; O2SAT 99; BMI 39.6
== END 2024-05-30 11:55 | disposition home or self-care (01) ==
PROVIDERS: PCP Internal Medicine; Visit Provider Internal Medicine
DX: R53.83 Other fatigue (principal); R06.02 Shortness of breath; G47.33 Obstructive sleep apnea (adult) (pediatric); F41.9 Anxiety disorder, unspecified
CPT/HCPCS: 99214

== ENCOUNTER 2024-07-07 09:05 | Outpatient (AMB) | payer OTHER, SELFPAY ==
--- NOTE | 2024-07-07 09:09 | A.OFFPC_ITS ---
Vital Signs 07/07/24 09:17 Height 5 ft 4 in Weight 231 lb 2 oz BMI 39.7 BP 136/84 Blood Pressure Location Rt brachial Position Sitting Pulse 78 Pulse Source Pulse Oximeter Pulse Oximetry (%) 96 Oxygen Delivery Method Room Air Intake Visit Reasons: anxiety follow up Intake Note: Jamie is a 33 year old male who presents to the office today for an anxiety follow up. Pt states he believes the sertraline is helping somewhat but states he cannot take the lorazepam or hydroxyzine because his neurologist states he can't take those meds due to his sleep apnea. Allergies shrimp [SHRIMP] Allergy (Intermediate, Verified 07/07/24 09:09) HIVES, SWELLING, HAYLEE Tobacco use date assessed: 07/07/24 Dental Screening Dental Screen Date: 07/07/24 Did you have a dental visit in the last 12 months?: No Did you have a dental problem in the last 6 months where you did not have access to dental care?: No Was dental information given to patient?: Yes HPI HPI Comments History of Present Illness Details This is a 33 year old male with a past medical history of DAVID, asthma presenting for follow up Anxiety has interval improvement on sertraline. Started seeing therapist Breathing symptoms previously noted with some interval improvement. Patient seen two weeks ago Patient woke up last week in the middle of the night. He felt like he was paralyzed. He has been having shortness of breath, air hunger. Upper and low back pain. This has increased anxiety levels. He has been using his albuterol without much help. He has had milder episodes of this in the past. Labs fairly unremarkable. He has CXR which was has not been read. Perhaps some findings consistent with perhaps bronchitis Reports his breathing has improved a little since his visit. He explains he has had intermittent episodes like this. Would like to see psychiatry in addition to neurology/sleep medicine. ROS see HPI PHYSICAL EXAM: GENERAL: Alert and oriented x 3. NAD EYES: EOMI. Anicteric. HENT: Moist mucous membranes. No scleral icterus. No cervical lymphadenopathy. LUNGS: Clear to auscultation bilaterally. CARDIOVASCULAR: Regular rate and rhythm. No murmur. No JVD. ABDOMEN: Soft, non-tender +bs EXTREMITIES: No edema. Non-tender. SKIN: No rashes or lesions. Warm. NEUROLOGIC: No focal neurological deficits. CN II-XII grossly intact PSYCHIATRIC: Cooperative. Appropriate mood and affect. 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 1. Little interest or pleasure in doing things: more than half the days 2. Feeling down, depressed, or hopeless: more than half the days 3. Trouble falling or staying asleep, or sleeping too much: not at all 4. Feeling tired or having little energy: more than half the days 5. Poor appetite or overeating: not at all 6. Feeling bad about yourself - or that you are a failure or have let yourself or your family down: not at all 7. Trouble concentrating on things, such as reading the newspaper or watching television: more than half the days 8. Moving or speaking so slowly that other people could have noticed. Or the opposite - being so fidgety or restless that you have been moving around a lot more than usual: more than half the days 9. Thoughts that you would be better off or of hurting yourself in some way: not at all Total score: 10 Depression Screening Interpretation: Positive Depression Screening Done: Yes 48889 - PHQ-9 Billing: Yes Source: Developed by Drs. Rishabh Eller, Tirny Rodriguez, Johny Santos and colleagues, with an educational joanne from [employer]. Thrive Questionnaire Date Thrive assessed: 05/16/24 I am a: Patient What is your living situation today?: I have a steady place to live Within the past 12 months, did the food you bought not last and you didn't have the money to get more?: Never true Within the past 12 months, did you worry whether your food would run out before you got money to buy more?: Never true Do you have trouble paying for medicines?: No Do you have trouble getting transportation to medical appointments?: No Do you have trouble paying your heating and electricity bill?: No Do you have trouble taking care of your child, family member or friend?: No Do you have trouble with day-to-day activities such as bathing, preparing meals, shopping, managing finances, etc.?: No Are you currently unemployed and looking for a job?: No Are you interested in more education?: No Please select the resources that you would like help with: None THRIVE Score: 0 GIGI-7 AMB Questionnaire GIGI-7 Date GIGI - 7 assessed: 07/07/24 Feeling nervous, anxious, or on edge: 2 = More than half the days Not being able to stop or control worryin = More than half the days Worrying too much about different things: 2 = More than half the days Trouble relaxin = More than half the days Being so restless that it is hard to sit still: 2 = More than half the days Becoming easily annoyed or irritable: 0 = Not at all Feeling afraid as if something awful might happen: 0 = Not at all Total GIGI-7 score (0-4 normal; 5-9 mild; 10-14 moderate; 15-21 severe): 10 Source: Developed by Drs. Rishabh Eller, Triny Rodriguez, Johny Santos and colleagues, with an educational joanne from [employer]. GIGI-7 Assessment Billing GIGI-7 Assessment Tool: GIGI-7 Assessment 83967 Physical exam (Primary Care) Vital Signs: Last Vital Signs Pulse 78 07/07/24 09:17 BP 136/84 07/07/24 09:17 Pulse Ox 96 07/07/24 09:17 Oxygen Delivery Method Room Air 07/07/24 09:17 BMI result Body Mass Index 39.7 Tobacco/Smoking Status: Tobacco use Status Tobacco use date assessed 07/07/24 07/07/24 09:10 Patient Tobacco Use Status Never used Tobacco 07/07/24 09:10 e-Cigarette/Vaping Use Currently Using 07/07/24 09:10 PHQ-9: PHQ-9 Score PHQ-9: Total score 10 07/07/24 09:32 Depression Screening Interpretation: Positive Thrive Assessment: Date of Thrive Assessment Date Thrive assessed 05/16/24 07/07/24 09:10 Assessment and Plan Assessment & Plan (1) Lumbar radiculopathy: Code(s): M54.16 - Radiculopathy, lumbar region Plan: with paresthesia. xray lumbar spine ordered (2) Anxiety: Code(s): F41.9 - Anxiety disorder, unspecified Plan: Improvement with therapy and sertraline. Orders: Orders XR lumbar spine 2-3V 07/07/24 R20.2 - Paresthesia of skin, M54.16 - Radiculopathy, lumbar region Medications: New doxycycline hyclate 100 mg PO BID 14 tabs 0RF 7 days Coding Level of Care Code Est Pt Level 4 (60254) Diagnoses Lumbar radiculopathy M54.16 Anxiety F41.9 Additional Codes GIGI-7 Assessment Billing - GIGI-7 Assessment Tool: GIGI-7 Assessment 96074 ([id number])
[2024-07-07 09:17] VITALS: BP 136/84; PULSE 78; O2SAT 96; BMI 39.7
== END 2024-07-07 09:45 | disposition home or self-care (01) ==
PROVIDERS: PCP Internal Medicine; Visit Provider Internal Medicine
DX: M54.16 Radiculopathy, lumbar region (principal); F41.9 Anxiety disorder, unspecified
CPT/HCPCS: 96127; 99214

== ENCOUNTER 2024-12-01 10:19 | Outpatient (AMB) | payer OTHER, SELFPAY ==
[2024-12-01 10:21] VITALS: BP 134/82; PULSE 86; O2SAT 97; BMI 41.0
--- NOTE | 2024-12-01 10:21 | MHC.OFFVIS ---
Vital Signs 12/01/24 10:21 Height 5 ft 4 in Weight 239 lb 2 oz BMI 41.0 BP 134/82 Blood Pressure Location Lt brachial Position Sitting Pulse 86 Pulse Source Pulse Oximeter Pulse Oximetry (%) 97 Oxygen Delivery Method Room Air Intake Visit Reasons: 05/19 LVM Follow up Allergies shrimp [SHRIMP] Allergy (Intermediate, Verified 12/01/24 10:23) HIVES, SWELLING, HAYLEE Medication List - Last Reconciled 12/01/24 by Ethel Alvarado PA-C albuterol sulfate 90 mcg/actuation 2 puffs inhalation Q4-6H PRN 30 days famotidine (Pepcid) 40 mg (2 x 20 mg) PO DAILY sertraline 25 mg PO DAILY 90 days venlafaxine 37.5 mg PO DAILY HPI Comments Details: 34 y/o male patient with new symptoms of fatigue and dizziness here for f/u of DAVID. CPAP compliance Report 08/2024 - 11/2024 >4 hours Total 6hours 49min Leaks 3 / pressures AHI 0.1 He has been having difficulty with falling and staying asleep, recently had a panic attack. He feels depressed, anxious, forgetful, has brain fog and fatigue most days. He is seeing a psychologist. He is snoring, and gasping for air. He hears voices as he is falling asleep, mainly his kids. BMI is 41, he gained about 80 lb over the last couple of years and the symptoms have worsened, he tends to be very down about his diet, as he can not lose weight. He drinks socially denies smoking. Pt frequently wakes up at night. He is not working at the moment. Hypersomnolence questionnaire: Do you have daytime tiredness or fatigue? Yes. Do you easily fall asleep when inactive? Yes. Have you ever had episodes of sudden weakness? No. Have you ever had episodes of sudden weakness associated with strong emotions? 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 Current occupational exposures/hazards: No Cognitive needs: No Hearing needs: No Vision needs: No Physical Exam Vital Signs: Last Vital Signs Pulse 86 12/01/24 10:21 BP 134/82 12/01/24 10:21 Pulse Ox 97 12/01/24 10:21 Oxygen Delivery Method Room Air 12/01/24 10:21 BMI result Body Mass Index 41.0 Const General: cooperative, comfortable and no acute distress Nutritional Appearance: obese (BMI is 41) Orientation/consciousness: patient oriented x3 HEENT Teeth and gingiva: other ([place] score of 3) Eyes Pupils: Equal, round and reactive pupils present Neck Neck: Yes full ROM Resp Effort & Inspection: normal respiratory effort and able to speak in complete sentences Neuro General: patient oriented x3 and moves all extremities Cranial nerves: Yes CN's II-XII intact bilaterally, Yes Facial sensation intact/muscles of mastication intact, Yes Equal, round and reactive pupils present, Yes Normal accommodation reflex present, Yes Bilaterally intact EOM present, Yes Normal facial strength present, Yes Midline tongue present, Yes Ability to bilaterally rotate head present and Yes Ability to bilaterally elevate shoulders present Gait exam (Neuro): Normal gait present (normal gait with limp L. knee pain) Motor exam (neuro): 5/5 motor strength present throughout and Normal motor muscle tone present throughout Deep tendon reflexes (DTR's): Right triceps reflex intensity grade: 2+, Left triceps reflex intensity grade: 2+, Rt Biceps (C5, C6): 2+, Left biceps reflex intensity grade: 2+, Right brachioradialis reflex intensity grade: 2+, Left brachioradialis reflex intensity grade: 2+, Right patellar reflex intensity grade: 2+ and Left patellar reflex intensity grade: 2+ Psych Appearance: well kempt Mental Status: mental status grossly normal Speech and movement: Pressured speech present Affect: normal affect Attitude: cooperative Thought process: Normal thought process present Thought content: Normal thought content present Insight: Good insight present (Psych) Judgement: Good judgement present (Psych) Results Reviewed Results Reviewed: CPAP compliance Report 08/2024 - 11/2024 >4 hours Total 6hours 49min Leaks 3 / pressures AHI 0.1 Assessment & Plan Assessment & Plan (1) Panic: Code(s): F41.0 - Panic disorder [episodic paroxysmal anxiety] Category: Medical (2) Left knee pain: Code(s): M25.562 - Pain in left knee Category: Medical Qualifiers: Chronicity: unspecified Qualified Code(s): M25.562 - Pain in left knee (3) Fatigue: Code(s): R53.83 - Other fatigue Category: Medical Qualifiers: Fatigue type: unspecified Qualified Code(s): R53.83 - Other fatigue (4) Excessive daytime sleepiness: Comment: [place] sleepiness scale is 17 Code(s): G47.19 - Other hypersomnia Category: Medical Plan DAVID Continue on CPAP as patient continues to experience good clinical effects. Weight Management: BMI is elevated will send him to review nutrition intake and meal prepping. Venlafaxine: SNRI Mood is irritable and depressed. Labs: Will f/u with Labs: Will check Vitamin D/B12 and Folate/ Microcytosis? Hgb F and Iron Low in April? PT: L. Knee pain on extension, flexion, ambulating. Orders: Orders Vitamin D 25-OH Total Today R53.83 - Other fatigue IRON PROFILE Today G47.19 - Other hypersomnia, R53.83 - Other fatigue PT Evaluation and Treatment Today M25.562 - Pain in left knee Vitamin B12 and Folate Today R53.83 - Other fatigue Medications: New venlafaxine 1 tablet by mouth at bedtime. 37.5 mg PO DAILY 30 tabs 3RF depression F41.0 - Panic disorder [episodic paroxysmal anxiety] Coding Level of Care Code Est Pt Level 4 (81120) Diagnoses Panic F41.0 Left knee pain, unspecified chronicity M25.562 Chronicity: unspecified Fatigue, unspecified type R53.83 Fatigue type: unspecified Excessive daytime sleepiness G47.19 Sleep Questionnaire Difficulty falling asleep: Yes Difficulty staying asleep?: Yes Number of arousals: 2-4x a night Snoring: No Witnessed apneas: Yes Gasping arousals: Yes Nocturia: Yes (2-3) GERD: Yes (Pepcid AC PRN) Vivid dreams: Yes Acting out dreams: No Abnormal behavior in sleep: No Abnormal movements in sleep: Yes Morning headaches: Yes (Go away after uses OTC NSAIDS PRN) Excessive daytime sleepiness: Yes Daytime naps: No Restless legs: Yes (numbness in side of L. Leg and knee) Hallucinations: Yes (Auditory Hallucinations prior to sleeping) Sleep paralysis: Yes Drop attacks: No Sleep Study: Yes CPAP: Yes
== END 2024-12-01 11:03 | disposition home or self-care (01) ==
PROVIDERS: PCP Internal Medicine; Visit Provider Physician Assistant Medical
DX: F41.0 Panic disorder [episodic paroxysmal anxiety] (principal); M25.562 Pain in left knee; R53.83 Other fatigue; G47.19 Other hypersomnia
CPT/HCPCS: 99214

== ENCOUNTER → 2024-12-01 10:19 | Outpatient (BNVA) | payer OTHER, SELFPAY | PROVIDERS: PCP Internal Medicine; Visit Provider Physician Assistant Medical | DX: F41.0 Panic disorder [episodic paroxysmal anxiety] (principal); M25.562 Pain in left knee; R53.83 Other fatigue; G47.19 Other hypersomnia | CPT/HCPCS: 99212 ==

== ENCOUNTER 2025-07-23 09:52 | Outpatient (AMB) | payer OTHER, SELFPAY ==
[2025-07-23 09:59] VITALS: BP 110/68; PULSE 72; O2SAT 95; BMI 41.4
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
--- OUTSIDE RECORDS SUMMARY | 2025-07-23 11:00 | XMS_ITS | Clinical Summary ---
Author Organization [facility] Address [address] [place] [phone] Phone Care Team Providers Care Stain Applicator Name Role Phone Unavailable Primary Care Provider Unavailabl e Immunizations Immunization Administration Dates Next Due DTP 12/26/1995, 3,03/25/1992,01/23,1991 Hep B, ped/adol 01/20/2009,08/02/2005,01/23/1998 Hib (HbOC) 02/23/1993, 2,01/23/1992,11/25 IPV 12/26/1995, 3,01/23/1992,11/25 Influenza, injectable, trivalent 01/20/2009 MMR 12/26/1995,02/23/1993 Meningococcal Conj (Menactra) MCV4P 09/12/2007 Td (adult) (MBL), 2 Lf tetan us toxoid, PF, adsorbed 08/02/2005 Tdap 09/12/2007 Family History Relation Name Status Comments Brother Alive Brother: Health y Maternal Grandmother Alive Materna l grandmother: Diabetic, ? Seizures Mother Alive Mother: Healthy Paternal Grandfather Alive Paterna l grandfather: ? cva, Myocardial infarction Sister Alive Sister: Heart p roblem Social History Tobacco Use Types Packs/Day Years Used Date Smoking Tobacco: Never Assessed Sex and Gender Information Value Date Recorded Sex Assigned at Not on file Legal Sex Male 4:34 PM EDT Gender Identity Not on file Sexual Orientation Not on file Last Filed Vital Signs Vital Sign Reading Time Taken Comments Blood Pressure 110/68 03/15/2011 12:00 AM EDT Pulse 88 03/15/2011 12:00 AM EDT Temperature 36.9 C (98.5 F) 03/15/2011 12:00 AM EDT Respiratory Rate - - Oxygen Saturation - - Inhaled Oxygen Concentration - - Weight 80.7 kg (178 lb) 03/15/2011 12:00 AM EDT Height 167.1 cm (5' 5.8 ) 03/15/2011 12:00 AM ED T Body Mass Index 28.9 03/15/2011 12:00 AM EDT Plan of Treatment Health Maintenance Due Date Last Done Comments Varicella Vaccines (1 of 2 - 13+ 2-dose series) 2004 DTaP,Tdap,and Td Vaccines (7 - Td or Tdap) 09/12/2017 09/12/2007, 08/02/2005, 12/26/1995, Additional history exists HPV Vaccines (1 - 3-dose SCDM series) 2018 COVID-19 Vaccine (2023- season) 2024 Influenza Vaccines (#1) 2025 01/20/2009 HIB Vaccines Completed 02/23/1993, 02/26, 01/23/1992, Additional history exists IPV Vaccines Completed 12/26/1995, 03/28, 01/23/1992, Additional history exists MMR Vaccines Completed 12/26/1995, 02/23/1993 Meningococcal Vaccine Completed 09/12/2007 Hepatitis B Vaccines Completed 01/20/2009, 08/02/2005, 01/23/1998 Hepatitis A Vaccines Aged Out No long er eligible based on patient's age to complete this topic Men B Vaccine Aged Out No longer elig ible based on patient's age to complete this topic Pneumococcal Vaccine Aged Out No long er eligible based on patient's age to complete this topic
--- OUTSIDE RECORDS SUMMARY | 2025-07-23 11:00 | XMS_ITS | Clinical Summary ---
Author Organization [facility] ity Address [address] [place] [address] Care Team Providers Care Construction Safety Consultant Name Role Phone Unavailable Primary Care Provider Unavailabl e Social History Tobacco Use Types Packs/Day Years Used Date Smoking Tobacco: Never Assessed Sex and Gender Information Value Date Recorded Sex Assigned at Not on file Legal Sex Male 12:24 AM EST Gender Identity Not on file Sexual Orientation Not on file Plan of Treatment Health Maintenance Due Date Last Done Comments DTaP,Tdap,and Td Vaccines (1 - Tdap) 2010 Hepatitis B Vaccines (1 of 3 - 19+ 3-dose series) 2010 COVID-19 Vaccine (2023-2 5 season) 2024 Depression Screening 11/26/2024 Influenza Vaccine (#1) 2025 HIB Vaccines Aged Out No longer eligi ble based on patient's age to complete this topic HPV Vaccines Aged Out No longer eligi ble based on patient's age to complete this topic Hepatitis A Vaccines Aged Out No long er eligible based on patient's age to complete this topic IPV Vaccines Aged Out No longer eligi ble based on patient's age to complete this topic MMR Vaccines Aged Out No longer eligi ble based on patient's age to complete this topic Meningococcal ACWY Vaccine Aged Out N o longer eligible based on patient's age to complete this topic Meningococcal B Vaccine Aged Out No l onger eligible based on patient's age to complete this topic Pneumococcal Vaccine: Pediat rics (0 to 5 Years) and At-Risk Patients (6 to 49 Years) Aged Out No longer eligible b ased on patient's age to complete this topic RSV Immunization Patients Un dustin 20 months Aged Out No longer eligible b ased on patient's age to complete this topic Varicella Vaccines Aged Out No longer eligible based on patient's age to complete this topic
--- OUTSIDE RECORDS SUMMARY | 2025-07-23 11:00 | XMS_ITS | Encounter Summary ---
Author Organization [facility] Address [address] [place] [phone] Phone Care Team Providers Care Engineering Teacher Name Role Phone Amelie Reyes NP Primary Care Provider Radha milligan Encounter Details Date Type Department Care Team (Late st Contact Info) Description 07/12/2017 Conversion Encounter [facility] - [address] [address] Social History Tobacco Use Types Packs/Day Years Used Date Smoking Tobacco: Never Assessed Sex and Gender Information Value Date Recorded Sex Assigned at Not on file Legal Sex Male 4:34 PM EDT Gender Identity Not on file Sexual Orientation Not on file documented as of this encounter Plan of Treatment Not on file documented as of this encounter Visit Diagnoses Not on filedocumented in this encounter Care Teams Engineering Teacher Relationship Specialty Start Date End Date Amelie Reyes NP PCP - General 07/06/17 03/08/23 documented as of this encounter
--- OUTSIDE RECORDS SUMMARY | 2025-07-23 11:00 | XMS_ITS | Encounter Summary ---
Author Organization [facility] Address [address] [place] [phone] Phone Care Team Providers Care Track Repair Worker Name Role Phone Amelie Reyes NP Primary Care Provider Radha milligan Encounter Details Date Type Department Care Team (Late st Contact Info) Description 05/06/2013 Documentation EM Family Medicine [address] [place], [place] [phone] Family Medicine, Physician [address] [place] [address] Social History Tobacco Use Types Packs/Day Years [...] on filedocumented in this encounter Care Teams Track Repair Worker Relationship Specialty Start Date End Date Amelie Reyes NP PCP - General 07/06/17 03/08/23 documented as of this encounter
== END 2025-07-23 10:40 | disposition home or self-care (01) ==
LOC: HO.HSMS 09:53
PROVIDERS: PCP Internal Medicine; Visit Provider Physician Assistant Medical
DX: R79.0 Abnormal level of blood mineral (principal); M25.562 Pain in left knee; R53.83 Other fatigue; G47.19 Other hypersomnia; M54.16 Radiculopathy, lumbar region; G25.81 Restless legs syndrome
CPT/HCPCS: 99214

== ENCOUNTER → 2025-07-23 09:52 | Outpatient (BNVA) | payer OTHER, SELFPAY | PROVIDERS: PCP Internal Medicine; Visit Provider Physician Assistant Medical | DX: G25.81 Restless legs syndrome (principal); M54.16 Radiculopathy, lumbar region; G47.19 Other hypersomnia; R53.83 Other fatigue; M25.562 Pain in left knee; R79.0 Abnormal level of blood mineral | CPT/HCPCS: 99212 ==

== ENCOUNTER 2025-08-14 15:12 | Outpatient (AMB) | payer OTHER, SELFPAY ==
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
--- OUTSIDE RECORDS SUMMARY | 2025-08-14 15:16 | XMS_ITS | Encounter Summary ---
Author Organization [facility] Address [address] [place] [address] Phone Care Team Providers Care Gerontological Nurse Practitioner Name Role Phone Amelie Reyes NP Primary Care Provider Radha milligan Encounter Details Date Type Department Care Team (Late st Contact Info) Description 07/12/2017 Conversion Encounter [facility] - [address] [address] Social History Tobacco Use Types Packs/Day Years [...] on filedocumented in this encounter Care Teams Gerontological Nurse Practitioner Relationship Specialty Start Date End Date Amelie Reyes NP PCP - General 07/06/17 03/08/23 documented as of this encounter
--- OUTSIDE RECORDS SUMMARY | 2025-08-14 15:16 | XMS_ITS | Clinical Summary ---
Author Organization [facility] ity Address [address] [place] [address] Care Team Providers Care Sonogram Technician Name Role Phone Unavailable Primary Care Provider [...] of 3 - 19+ 3-dose series) 2010 Depression Screening 11/26/2024 COVID-19 Vaccine (1 - 2023-2 5 season) 2025 Influenza Vaccine (#1) 2025 HIB Vaccines Aged [...]
--- OUTSIDE RECORDS SUMMARY | 2025-08-14 15:16 | XMS_ITS | Encounter Summary ---
Author Organization [facility] Address [address] [place] [address] Phone Care Team Providers Care Respiratory Care Faculty Name Role Phone Amelie Reyes NP Primary Care Provider Radha milligan Encounter Details Date Type Department Care Team (Late st Contact Info) Description 05/06/2013 Documentation EM Family Medicine [address] [place], [place] [phone] Family Medicine, Physician [address] [place] [address] Social History Tobacco Use Types Packs/Day Years [...] on filedocumented in this encounter Care Teams Respiratory Care Faculty Relationship Specialty Start Date End Date Amelie Reyes NP PCP - General 07/06/17 03/08/23 documented as of this encounter
--- OUTSIDE RECORDS SUMMARY | 2025-08-14 15:16 | XMS_ITS | Clinical Summary ---
Author Organization [facility] Address [address] [place] [address] Phone Care Team Providers Care Shop Estimator Name Role Phone Unavailable Primary Care Provider [...] Vaccines (1 - 3-dose SCDM series) 2018 Influenza Vaccines (#1) 2025 01/20/2009 COVID-19 Vaccine ( season) 2025 HIB Vaccines Completed 02/23/1993, 02/26, 01/23/1992, Additional [...]
[2025-08-14 15:21] VITALS: BP 104/78; PULSE 118; RESP 15; TEMP 37; O2SAT 96; BMI 40.7
== END 2025-08-14 15:46 | disposition home or self-care (01) ==
LOC: HO.HMCFM 15:13
PROVIDERS: PCP Internal Medicine; Visit Provider Internal Medicine
DX: S82.102S Unspecified fracture of upper end of left tibia, sequela (principal); F33.1 Major depressive disorder, recurrent, moderate; F41.9 Anxiety disorder, unspecified; G47.33 Obstructive sleep apnea (adult) (pediatric)

== ENCOUNTER → 2025-08-14 15:12 | Outpatient (BNVA) | payer OTHER, SELFPAY | PROVIDERS: PCP Internal Medicine; Visit Provider Internal Medicine | DX: F33.1 Major depressive disorder, recurrent, moderate (principal); F41.9 Anxiety disorder, unspecified; G47.33 Obstructive sleep apnea (adult) (pediatric); S82.102D Unspecified fracture of upper end of left tibia, subsequent encounter for closed fracture with routine healing; Z99.89 Dependence on other enabling machines and devices; Z13.31 Encounter for screening for depression | CPT/HCPCS: 99212 ==

== ENCOUNTER → 2025-09-14 16:27 | Outpatient (AMB) | payer OTHER, SELFPAY ==
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
--- OUTSIDE RECORDS SUMMARY | 2025-09-14 20:40 | XMS_ITS | Encounter Summary ---
Author Organization [facility] Address [address] [place] [phone] Phone Care Team Providers Care Food Technician Name Role Phone Amelie Reyes NP Primary Care Provider Radha milligan Encounter Details Date Type Department Care Team (Late st Contact Info) Description 07/12/2017 Conversion Encounter [facility] - [address] [address] Social History Tobacco Use Types Packs/Day Years [...] on filedocumented in this encounter Care Teams Food Technician Relationship Specialty Start Date End Date Amelie Reyes NP PCP - General 07/06/17 03/08/23 documented as of this encounter
--- OUTSIDE RECORDS SUMMARY | 2025-09-14 20:40 | XMS_ITS | Clinical Summary ---
Author Organization [facility] Address [address] [place] [phone] Phone Care Team Providers Care Professional Nurse Name Role Phone Unavailable Primary Care Provider [...] Influenza Vaccines (#1) 2025 01/20/2009 COVID-19 Vaccine (2024- season) 2025 HIB Vaccines Completed 02/23/1993, 02/26, [...]
--- OUTSIDE RECORDS SUMMARY | 2025-09-14 20:40 | XMS_ITS | Encounter Summary ---
Author Organization [facility] Address [address] [place] [address] Phone Care Team Providers Care Medical Language Specialist Name Role Phone Amelie Reyes NP Primary Care Provider Radha milligan Encounter Details Date Type Department Care Team (Late st Contact Info) Description 05/06/2013 Documentation EM Family Medicine [address] [place], [place] [phone] Family Medicine, Physician [address] [place] [address] Social History Tobacco Use Types Packs/Day Years [...] on filedocumented in this encounter Care Teams Medical Language Specialist Relationship Specialty Start Date End Date Amelie Reyes NP PCP - General 07/06/17 03/08/23 documented as of this encounter
== END ==
LOC: HO.HMCFM 16:27
PROVIDERS: PCP Internal Medicine; Visit Provider Internal Medicine
DX: F41.9 Anxiety disorder, unspecified (principal); F33.1 Major depressive disorder, recurrent, moderate

== ENCOUNTER → 2025-09-14 16:27 | Outpatient (BNVA) | payer OTHER, SELFPAY | PROVIDERS: PCP Internal Medicine; Visit Provider Internal Medicine | DX: F41.9 Anxiety disorder, unspecified (principal); F33.1 Major depressive disorder, recurrent, moderate; J45.909 Unspecified asthma, uncomplicated; G47.33 Obstructive sleep apnea (adult) (pediatric); Z99.89 Dependence on other enabling machines and devices; Z13.31 Encounter for screening for depression; Z13.39 Encounter for screening examination for other mental health and behavioral disorders | CPT/HCPCS: 96127 ==